=== PATIENT | female | born 1940 | race Caucasian/White ===

== ENCOUNTER → 2016-04-15 | Outpatient (CLI) | payer MEDICARE ==
--- NOTE | 2016-04-15 12:27 | REP ---
Clinical: Cervicalgia. Technique: AP, lateral, flexion/extension, open-mouth, and bilateral oblique views. Comparison: None. Findings: Advanced chronic changes include prior anterior fusion at the C3-4 level along with diffuse partial fusion throughout the remainder of the cervical spine. Alignment is maintained. No acute fracture / compression injury or subluxation identified. 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
== END | disposition home or self-care (01) ==
LOC: M CLY 11:34
PROVIDERS: ATTEND Family Medicine
DX: M50.320 Other cervical disc degeneration, mid-cervical region, unspecified level (principal); E03.9 Hypothyroidism, unspecified; Z98.890 Other specified postprocedural states
CPT/HCPCS: 72050; 80053; 80061; 82652; 84436; 84443; 84480; 85025; G0463

== ENCOUNTER → 2016-04-15 | Outpatient (REF) | payer MEDICARE ==
[2016-04-15 17:30] LABS: BASO # 0.1 K/mm3 (0.0-0.2); BASO % 0.9 % (0.0-1.0); EOS # 0.3 K/mm3 (0.0-0.50); EOS % 5.1 % (0.0-3.0); LARGE UNSTAINED CELL # 0.1 K/mm3 (0.0-0.4); LARGE UNSTAINED CELL % 2.2 % (0.0-4.0); LYMPH # 2.3 K/mm3 (1.5-4.5); LYMPH % 36.6 % (24.0-44.0); MEAN CORPUSCULAR HEMOGLOBIN 29.2 pg (27.0-33.0); MEAN CORPUSCULAR HGB CONC 33.8 g/dl (32.0-36.5); MEAN CORPUSCULAR VOLUME 86.5 fl (80.0-96.0); MONO # 0.3 K/mm3 (0.0-0.8); MONO % 4.4 % (0.0-5.0); NEUTROPHILS # 3.2 K/mm3 (1.8-7.7); NEUTROPHILS % 50.8 % (36.0-66.0); PLATELET COUNT, AUTOMATED 307 k/mm3 (150-450); WHITE BLOOD COUNT 6.3 K/mm3 (4.0-10.0)
[2016-04-15 17:43] LABS: ALBUMIN/GLOBULIN RATIO 1.14 (1.00-1.93); ALKALINE PHOSPHATASE 157 U/L (45-117); ALT/SGPT 61 U/L (12-78); ANION GAP 12 MEQ/L (8-16); AST/SGOT 29 U/L (15-37); BILIRUBIN,TOTAL 0.4 MG/DL (0.2-1.0); BLOOD UREA NITROGEN 14 MG/DL (7-18); CALCIUM LEVEL 9.1 MG/DL (8.8-10.2); CARBON DIOXIDE LEVEL 26 MEQ/L (21-32); CHLORIDE LEVEL 99 MEQ/L (98-107); CHOLESTEROL LEVEL 324 MG/DL (<200); CREATININE FOR GFR 0.62 MG/DL (0.55-1.02); GLOMERULAR FILTRATION RATE > 60.0 (>39); GLUCOSE, FASTING 90 MG/DL (83-110); POTASSIUM SERUM 4.5 MEQ/L (3.5-5.1); SODIUM LEVEL 137 MEQ/L (136-145); THYROXINE (T4) 6.4 UG/DL (4.5-12.0); TOTAL PROTEIN 7.5 GM/DL (6.4-8.2); TRIGLYCERIDES LEVEL 472 MG/DL (<150)
== END ==
LOC: M SFHCCLAY 11:19
PROVIDERS: ATTEND Family Medicine
DX: I10 Essential (primary) hypertension (principal); E78.2 Mixed hyperlipidemia; E03.9 Hypothyroidism, unspecified; E55.9 Vitamin D deficiency, unspecified

== ENCOUNTER → 2016-07-12 | Outpatient (REF) | payer MEDICARE ==
[2016-07-12 18:04] LABS: THYROXINE (T4) 8.8 UG/DL (4.5-12.0)
== END ==
LOC: M SFHCCLAY 09:47
PROVIDERS: ATTEND Family Medicine
DX: E03.9 Hypothyroidism, unspecified (principal)
CPT/HCPCS: 84436; 84443; 84480; G0463

== ENCOUNTER → 2016-07-19 | Outpatient (REF) | payer MEDICARE ==
[2016-07-19 17:55] LABS: ANION GAP 7 MEQ/L (8-16); BLOOD UREA NITROGEN 19 MG/DL (7-18); CALCIUM LEVEL 9.3 MG/DL (8.8-10.2); CARBON DIOXIDE LEVEL 28 MEQ/L (21-32); CHLORIDE LEVEL 102 MEQ/L (98-107); CREATININE FOR GFR 0.69 MG/DL (0.55-1.02); GLOMERULAR FILTRATION RATE > 60.0 (>39); GLUCOSE, FASTING 102 MG/DL (83-110); POTASSIUM SERUM 4.4 MEQ/L (3.5-5.1); SODIUM LEVEL 137 MEQ/L (136-145)
== END ==
LOC: M SFHCCLAY 12:56
PROVIDERS: ATTEND Family Medicine
DX: I10 Essential (primary) hypertension (principal)

== ENCOUNTER → 2016-07-19 | Outpatient (CLI) | payer MEDICARE ==
--- NOTE | 2016-07-19 16:15 | REP ---
Chest x-ray: Two views: History: Shortness of breath. No comparison chest x-ray. Findings: The patient is status post cervical discectomy and fusion. There is linear fibrosis in the lingular segment of the left upper lobe. Lung mendez are otherwise clear and well inflated. Pleural angles are sharp. Heart size is normal. The aorta is somewhat tortuous. There are degenerative changes in the thoracic spine. 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 Otherwise no acute disease.
== END ==
LOC: M CLY 13:01
PROVIDERS: ATTEND Family Medicine
DX: R06.02 Shortness of breath (principal); Z98.1 Arthrodesis status; I10 Essential (primary) hypertension
CPT/HCPCS: 71020; 80048; G0463

== ENCOUNTER → 2017-02-18 | Outpatient (REF) | payer MEDICARE ==
[2017-02-18 19:44] LABS: THYROXINE (T4) 10.6 UG/DL (4.5-12.0)
== END ==
LOC: M SFHCCLAY 10:24
PROVIDERS: ATTEND Family Medicine
DX: E03.9 Hypothyroidism, unspecified (principal); E55.9 Vitamin D deficiency, unspecified; Z23 Encounter for immunization
CPT/HCPCS: 82652; 84436; 84443; 90662; G0008; G0463

== ENCOUNTER → 2017-06-17 | Outpatient (REF) | payer MEDICARE ==
[2017-06-17 17:21] LABS: TOTAL T3 93.5 NG/DL (60.0-181.0)
[2017-06-17 18:00] LABS: BASO # 0.1 10^3/uL (0.0-0.2); BASO % 1.5 % (0.0-1.0); EOS # 0.6 10^3/uL (0.0-0.50); EOS % 9.8 % (0.0-3.0); HEMATOCRIT 39.5 % (36.0-47.0); HEMOGLOBIN 13.3 g/dl (12.0-16.0); IMMATURE GRANULOCYTE % 0.2 % (0-3.0); LYMPH # 2.4 10^3/uL (1.5-4.5); LYMPH % 39.5 % (24.0-44.0); MEAN CORPUSCULAR HEMOGLOBIN 29.4 pg (27.0-33.0); MEAN CORPUSCULAR HGB CONC 33.7 g/dl (32.0-36.5); MEAN CORPUSCULAR VOLUME 87.4 fl (80.0-96.0); MONO # 0.5 10^3/uL (0.0-0.8); MONO % 7.3 % (0.0-5.0); NEUTROPHILS # 2.6 10^3/uL (1.8-7.7); NEUTROPHILS % 41.7 % (36.0-66.0); PLATELET COUNT, AUTOMATED 276 10^3/uL (150-450); RED BLOOD COUNT 4.52 10^6/uL (4.00-5.40); RED CELL DISTRIBUTION WIDTH 12.6 % (11.5-14.5); WHITE BLOOD COUNT 6.1 10^3/uL (4.0-10.0)
[2017-06-17 18:20] LABS: ALBUMIN 3.7 GM/DL (3.2-5.2); ALBUMIN/GLOBULIN RATIO 1.06 (1.00-1.93); ALKALINE PHOSPHATASE 122 U/L (45-117); ALT/SGPT 24 U/L (12-78); ANION GAP 9 MEQ/L (8-16); AST/SGOT 20 U/L (7-37); BILIRUBIN,TOTAL 0.4 MG/DL (0.2-1.0); BLOOD UREA NITROGEN 13 MG/DL (7-18); CARBON DIOXIDE LEVEL 26 MEQ/L (21-32); CHLORIDE LEVEL 100 MEQ/L (98-107); CREATININE FOR GFR 0.63 MG/DL (0.55-1.30); GLOMERULAR FILTRATION RATE > 60.0 (>39); GLUCOSE, FASTING 95 MG/DL (70-100); POTASSIUM SERUM 4.5 MEQ/L (3.5-5.1); SODIUM LEVEL 135 MEQ/L (136-145); THYROXINE (T4) 8.6 UG/DL (4.5-12.0); TOTAL PROTEIN 7.2 GM/DL (6.4-8.2)
[2017-06-20 15:19] LABS: VITAMIN D 1,25 DIHYDROXY 54.7 pg/mL (19.9-79.3)
== END ==
LOC: M SFHCCLAY 10:41
DX: E55.9 Vitamin D deficiency, unspecified (principal); I10 Essential (primary) hypertension; E03.9 Hypothyroidism, unspecified
CPT/HCPCS: 84443

== ENCOUNTER → 2018-02-16 | Outpatient (REF) | payer MEDICARE ==
[2018-02-16 18:10] LABS: ANION GAP 8 MEQ/L (8-16); BLOOD UREA NITROGEN 13 MG/DL (7-18); CALCIUM LEVEL 9.7 MG/DL (8.8-10.2); CARBON DIOXIDE LEVEL 29 MEQ/L (21-32); CHLORIDE LEVEL 98 MEQ/L (98-107); CREATININE FOR GFR 0.76 MG/DL (0.55-1.30); GLOMERULAR FILTRATION RATE > 60.0 (>39); GLUCOSE, FASTING 95 MG/DL (70-100); POTASSIUM SERUM 4.7 MEQ/L (3.5-5.1); SODIUM LEVEL 135 MEQ/L (136-145)
== END ==
LOC: M SFHCCLAY 09:54
DX: E03.9 Hypothyroidism, unspecified (principal); I10 Essential (primary) hypertension; Z23 Encounter for immunization
CPT/HCPCS: 84443

== ENCOUNTER → 2018-09-25 | Outpatient (REF) | payer OTHER ==
[2018-09-25 16:32] LABS: BASO # 0.1 10^3/uL (0.0-0.2); BASO % 1.7 % (0.0-1.0); EOS # 0.6 10^3/uL (0.0-0.50); EOS % 8.2 % (0.0-3.0); HEMATOCRIT 38.4 % (36.0-47.0); HEMOGLOBIN 12.6 g/dl (12.0-15.5); LYMPH # 2.3 10^3/uL (1.5-4.5); LYMPH % 32.2 % (24.0-44.0); MEAN CORPUSCULAR HEMOGLOBIN 28.6 pg (27.0-33.0); MEAN CORPUSCULAR HGB CONC 32.8 g/dl (32.0-36.5); MEAN CORPUSCULAR VOLUME 87.1 fl (80.0-96.0); MONO # 0.5 10^3/uL (0.0-0.8); MONO % 7.1 % (0.0-5.0); NEUTROPHILS # 3.6 10^3/uL (1.8-7.7); NEUTROPHILS % 50.7 % (36.0-66.0); PLATELET COUNT, AUTOMATED 312 10^3/uL (150-450); RED BLOOD COUNT 4.41 10^6/uL (4.00-5.40); WHITE BLOOD COUNT 7.1 10^3/uL (4.0-10.0)
[2018-09-25 16:46] LABS: ALBUMIN 3.7 GM/DL (3.2-5.2); ALT/SGPT 31 U/L (12-78); BILIRUBIN,TOTAL 0.3 MG/DL (0.2-1.0); BLOOD UREA NITROGEN 21 MG/DL (7-18); CALCIUM LEVEL 9.3 MG/DL (8.8-10.2); CARBON DIOXIDE LEVEL 28 MEQ/L (21-32); CHLORIDE LEVEL 99 MEQ/L (98-107); CREATININE FOR GFR 0.83 MG/DL (0.55-1.30); GLOMERULAR FILTRATION RATE > 60.0 (>39); GLUCOSE, FASTING 120 MG/DL (70-100); POTASSIUM SERUM 4.5 MEQ/L (3.5-5.1); SODIUM LEVEL 134 MEQ/L (136-145); THYROXINE (T4) 9.2 UG/DL (4.5-12.0)
[2018-09-25 16:47] LABS: TOTAL T3 84.4 NG/DL (60.0-181.0)
== END ==
LOC: M SFHCCLAY 11:11
PROVIDERS: ATTEND Family Medicine
DX: R06.02 Shortness of breath (principal); I10 Essential (primary) hypertension; E03.9 Hypothyroidism, unspecified

== ENCOUNTER → 2018-09-25 | Outpatient (CLI) | payer OTHER ==
--- NOTE | 2018-09-25 14:10 | REP ---
PA and lateral chest: Comparison is 07/19/2016. This horizontal linear scar in the left mid lung. This is unchanged. Lung mendez otherwise clear. Cardiac size is normal. The judy and mediastinum are unremarkable. Mild scoliosis and kyphosis are again identified, unchanged. Impression: There are no acute cardiopulmonary findings.
== END ==
LOC: M CLY 11:28
PROVIDERS: ATTEND Family Medicine
DX: R06.02 Shortness of breath (principal); E03.9 Hypothyroidism, unspecified
CPT/HCPCS: 71046; 80053; 84436; 84443; 84480; 85025; G0463

== ENCOUNTER → 2019-04-30 | Outpatient (REF) | payer MEDICARE ==
[2019-04-30 17:04] LABS: BASO # 0.1 10^3/uL (0.0-0.2); BASO % 1.6 % (0.0-1.0); EOS # 0.4 10^3/uL (0.0-0.5); EOS % 6.7 % (0.0-3.0); HEMATOCRIT 42.4 % (36.0-47.0); HEMOGLOBIN 13.4 g/dl (12.0-15.5); LYMPH # 2.7 10^3/uL (1.5-5.0); LYMPH % 42.7 % (24.0-44.0); MEAN CORPUSCULAR HEMOGLOBIN 28.1 pg (27.0-33.0); MEAN CORPUSCULAR HGB CONC 31.6 g/dl (32.0-36.5); MEAN CORPUSCULAR VOLUME 88.9 fl (80.0-96.0); MONO # 0.5 10^3/uL (0.0-0.8); MONO % 7.3 % (0.0-5.0); NEUTROPHILS # 2.7 10^3/uL (1.5-8.5); NEUTROPHILS % 41.5 % (36.0-66.0); PLATELET COUNT, AUTOMATED 285 10^3/uL (150-450); RED BLOOD COUNT 4.77 10^6/uL (4.00-5.40); WHITE BLOOD COUNT 6.4 10^3/uL (4.0-10.0)
[2019-04-30 17:35] LABS: ALBUMIN 3.9 GM/DL (3.2-5.2); ALT/SGPT 26 U/L (12-78); BILIRUBIN,TOTAL 0.5 MG/DL (0.2-1.0); BLOOD UREA NITROGEN 15 MG/DL (7-18); CALCIUM LEVEL 8.8 MG/DL (8.8-10.2); CARBON DIOXIDE LEVEL 30 MEQ/L (21-32); CHLORIDE LEVEL 103 MEQ/L (98-107); CREATININE FOR GFR 0.83 MG/DL (0.55-1.30); GLOMERULAR FILTRATION RATE > 60.0 (>39); GLUCOSE, FASTING 122 MG/DL (70-100); POTASSIUM SERUM 4.3 MEQ/L (3.5-5.1); SODIUM LEVEL 140 MEQ/L (136-145); TOTAL PROTEIN 7.2 GM/DL (6.4-8.2)
== END ==
LOC: M SFHCCLAY 11:35
PROVIDERS: ATTEND Family Medicine
DX: I10 Essential (primary) hypertension (principal); E03.9 Hypothyroidism, unspecified; Z23 Encounter for immunization
CPT/HCPCS: 80053; 84443; 85025; 90682; G0008; G0463

== ENCOUNTER → 2020-05-04 | Outpatient (REF) | payer MEDICARE ==
[2020-05-04 16:18] LABS: BASO # 0.1 10^3/uL (0.0-0.2); BASO % 1.1 % (0.0-1.0); EOS # 0.5 10^3/uL (0.0-0.5); EOS % 5.8 % (0.0-3.0); HEMATOCRIT 42.3 % (36.0-47.0); HEMOGLOBIN 13.7 g/dl (12.0-15.5); LYMPH % 34.2 % (24.0-44.0); MEAN CORPUSCULAR HEMOGLOBIN 28.5 pg (27.0-33.0); MEAN CORPUSCULAR HGB CONC 32.4 g/dl (32.0-36.5); MEAN CORPUSCULAR VOLUME 87.9 fl (80.0-96.0); MONO # 0.7 10^3/uL (0.0-0.8); MONO % 7.4 % (0.0-5.0); NEUTROPHILS # 4.5 10^3/uL (1.5-8.5); NEUTROPHILS % 51.2 % (36.0-66.0); PLATELET COUNT, AUTOMATED 317 10^3/uL (150-450); RED BLOOD COUNT 4.81 10^6/uL (4.00-5.40); WHITE BLOOD COUNT 8.8 10^3/uL (4.0-10.0)
[2020-05-04 16:48] LABS: ALBUMIN 4.4 GM/DL (3.2-5.2); BILIRUBIN,TOTAL 0.4 MG/DL (0.2-1.0); CALCIUM LEVEL 9.8 MG/DL (8.8-10.2); CHOLESTEROL RISK RATIO 7.795 (<5); CREATININE FOR GFR 1.04 MG/DL (0.55-1.30); GLOMERULAR FILTRATION RATE 54.7 (>39); POTASSIUM SERUM 4.6 MEQ/L (3.5-5.1); THYROID STIMULATING HORMONE 3.67 uIU/ML (0.358-3.740); TOTAL PROTEIN 7.5 GM/DL (6.4-8.2)
== END ==
LOC: M SFHCCLAY 12:05
PROVIDERS: ATTEND Family Medicine
DX: E78.2 Mixed hyperlipidemia (principal); I10 Essential (primary) hypertension; E03.9 Hypothyroidism, unspecified

== ENCOUNTER → 2020-09-17 | Outpatient (REF) | payer MEDICARE | LOC: M WUC 19:38 | PROVIDERS: ATTEND Nurse Practitioner Family | DX: R19.7 Diarrhea, unspecified (principal); R50.9 Fever, unspecified ==

== ENCOUNTER → 2020-09-19 | Outpatient (CLI) | payer MEDICARE ==
--- NOTE | 2020-09-19 13:41 | REP ---
INDICATION: R10.13, EPIGASTRIC PAIN. COMPARISON: None. FINDINGS: KUB shows the intestinal gas pattern to be nonspecific. The organ silhouettes insofar as delineated are unremarkable. There is no evidence of free intraperitoneal air. Spinal fixation is seen at L4-S1. There are multiple bilateral pelvic phleboliths. IMPRESSION: Nonspecific. <Electronically signed by Dany Echevarria > 09/19/20 [id number]
== END ==
LOC: M CLY 09:40
PROVIDERS: ATTEND Family Medicine
DX: I87.8 Other specified disorders of veins (principal); R10.13 Epigastric pain

== ENCOUNTER → 2020-09-19 | Outpatient (REF) | payer MEDICARE ==
[2020-09-19 15:57] LABS: BASO # 0.1 10^3/uL (0.0-0.2); BASO % 0.9 % (0.0-1.0); EOS # 0.5 10^3/uL (0.0-0.5); EOS % 5.1 % (0.0-3.0); HEMATOCRIT 45.8 % (36.0-47.0); HEMOGLOBIN 15.1 g/dl (12.0-15.5); LYMPH # 3.2 10^3/uL (1.5-5.0); LYMPH % 33.4 % (24.0-44.0); MEAN CORPUSCULAR HEMOGLOBIN 28.5 pg (27.0-33.0); MEAN CORPUSCULAR VOLUME 86.6 fl (80.0-96.0); MONO # 0.9 10^3/uL (0.0-0.8); MONO % 8.9 % (2.0-8.0); NEUTROPHILS % 51.5 % (36.0-66.0); PLATELET COUNT, AUTOMATED 352 10^3/uL (150-450); RED BLOOD COUNT 5.29 10^6/uL (4.00-5.40); WHITE BLOOD COUNT 9.7 10^3/uL (4.0-10.0)
[2020-09-19 16:23] LABS: ALBUMIN 4.2 GM/DL (3.2-5.2); BILIRUBIN,TOTAL 0.5 MG/DL (0.2-1.0); CALCIUM LEVEL 10.8 MG/DL (8.8-10.2); CREATININE FOR GFR 1.32 MG/DL (0.55-1.30); GLOMERULAR FILTRATION RATE 41.4 (>39); POTASSIUM SERUM 4.8 MEQ/L (3.5-5.1)
== END ==
LOC: M SFHCCLAY 09:19
PROVIDERS: ATTEND Family Medicine
DX: R10.13 Epigastric pain (principal)

== ENCOUNTER → 2020-09-22 | Outpatient (CLI) | payer MEDICARE ==
--- NOTE | 2020-09-22 10:17 | REP ---
INDICATION: EPIGASTRIC PAIN. COMPARISON: None. TECHNIQUE: Real-time sonographic evaluation of ABDOMEN performed. FINDINGS: The gallbladder demonstrates no evidence of intraluminal sludge or calculi, wall thickening or pericholecystic fluid. There is no intrahepatic or extrahepatic biliary dilatation, common bile duct measures 7 mm in maximum diameter. Liver demonstrates diffuse increased echotexture compatible with diffuse fibrofatty infiltration, with no gross mass. The visualized pancreas is grossly unremarkable, the tail is not well seen due to overlying bowel gas. Spleen is normal in length at 12.2 cm. However the splenic index is mildly elevated at 772. There is no evidence of hydronephrosis, cyst, mass, or calculus in either kidney. The right kidney measures 10.2 x 7.2 x 5.7 cm. Left renal dimensions are 10.5 x 5.0 x 5.1 cm. The abdominal aorta is normal in caliber with no aneurysm. [id number] plaquing is noted of the abdominal aorta. No free fluid is seen. IMPRESSION: Diffuse fibrofatty infiltration of the liver. No gallstones or biliary dilatation. Spleen is normal in length, but the splenic index is mildly elevated suggesting mild splenomegaly. <Electronically signed by Adolfo Timmons > 09/22/20 [id number]
== END ==
LOC: M RAD 08:09
PROVIDERS: ATTEND Family Medicine
DX: R10.816 Epigastric abdominal tenderness (principal); K76.0 Fatty (change of) liver, not elsewhere classified

== ENCOUNTER → 2021-03-06 | Outpatient (REF) | payer MEDICARE ==
[2021-03-06 16:20] LABS: BASO # 0.1 10^3/uL (0.0-0.2); BASO % 1.3 % (0.0-1.0); EOS # 0.3 10^3/uL (0.0-0.5); EOS % 4.3 % (0.0-3.0); HEMATOCRIT 40.7 % (36.0-47.0); HEMOGLOBIN 13.3 g/dl (12.0-15.5); LYMPH # 2.6 10^3/uL (1.5-5.0); LYMPH % 38.1 % (24.0-44.0); MEAN CORPUSCULAR HEMOGLOBIN 29.2 pg (27.0-33.0); MEAN CORPUSCULAR HGB CONC 32.7 g/dl (32.0-36.5); MEAN CORPUSCULAR VOLUME 89.5 fl (80.0-96.0); MONO # 0.6 10^3/uL (0.0-0.8); MONO % 8.2 % (2.0-8.0); NEUTROPHILS # 3.2 10^3/uL (1.5-8.5); PLATELET COUNT, AUTOMATED 318 10^3/uL (150-450); RED BLOOD COUNT 4.55 10^6/uL (4.00-5.40); WHITE BLOOD COUNT 6.7 10^3/uL (4.0-10.0)
[2021-03-06 17:04] LABS: ALBUMIN 3.7 GM/DL (3.2-5.2); ALT/SGPT 32 U/L (12-78); BILIRUBIN,TOTAL 0.4 MG/DL (0.2-1.0); BLOOD UREA NITROGEN 20 MG/DL (7-18); CALCIUM LEVEL 9.4 MG/DL (8.8-10.2); CARBON DIOXIDE LEVEL 28 MEQ/L (21-32); CHLORIDE LEVEL 102 MEQ/L (98-107); CHOLESTEROL LEVEL 294 MG/DL (<200); CHOLESTEROL RISK RATIO 6.533 (<5); CREATININE FOR GFR 0.91 MG/DL (0.55-1.30); GLOMERULAR FILTRATION RATE > 60.0 (>39); GLUCOSE, FASTING 161 MG/DL (70-100); HDL CHOLESTEROL 45 MG/DL (>40); LDL CHOLESTEROL 191 MG/DL (<100); NON-HDL-C 249 MG/DL; POTASSIUM SERUM 4.5 MEQ/L (3.5-5.1); SODIUM LEVEL 136 MEQ/L (136-145); TOTAL PROTEIN 7.5 GM/DL (6.4-8.2); TRIGLYCERIDES LEVEL 288 MG/DL (<150)
== END ==
LOC: M SFHCCLAY 11:05
PROVIDERS: ATTEND Family Medicine
DX: E78.2 Mixed hyperlipidemia (principal); E03.9 Hypothyroidism, unspecified; I10 Essential (primary) hypertension

== ENCOUNTER → 2022-01-11 | Outpatient (REF) | payer MEDICARE ==
[2022-01-11 18:25] LABS: BASO # 0.1 10^3/uL (0.0-0.2); BASO % 1.4 % (0.0-1.0); EOS # 0.6 10^3/uL (0.0-0.5); EOS % 11.2 % (0.0-3.0); HEMATOCRIT 31.5 % (36.0-47.0); HEMOGLOBIN 10.4 g/dl (12.0-15.5); LYMPH # 1.3 10^3/uL (1.5-5.0); LYMPH % 25.5 % (24.0-44.0); MEAN CORPUSCULAR HEMOGLOBIN 29.8 pg (27.0-33.0); MEAN CORPUSCULAR VOLUME 90.3 fl (80.0-96.0); MONO # 0.5 10^3/uL (0.0-0.8); MONO % 10.2 % (2.0-8.0); NEUTROPHILS # 2.7 10^3/uL (1.5-8.5); NEUTROPHILS % 51.5 % (36.0-66.0); PLATELET COUNT, AUTOMATED 329 10^3/uL (150-450); RED BLOOD COUNT 3.49 10^6/uL (4.00-5.40); WHITE BLOOD COUNT 5.2 10^3/uL (4.0-10.0)
[2022-01-11 19:09] LABS: ALBUMIN 3.1 GM/DL (3.2-5.2); ALT/SGPT 97 U/L (12-78); BILIRUBIN,TOTAL 0.5 MG/DL (0.2-1.0); BLOOD UREA NITROGEN 13 MG/DL (7-18); CALCIUM LEVEL 8.9 MG/DL (8.8-10.2); CARBON DIOXIDE LEVEL 26 MEQ/L (21-32); CHLORIDE LEVEL 98 MEQ/L (98-107); CHOLESTEROL LEVEL 150 MG/DL (<200); CHOLESTEROL RISK RATIO 3.947 (<5); CREATININE FOR GFR 0.91 MG/DL (0.55-1.30); GLOMERULAR FILTRATION RATE > 60.0 (>39); GLUCOSE, FASTING 188 MG/DL (70-100); HDL CHOLESTEROL 38 MG/DL (>40); LDL CHOLESTEROL 90 MG/DL (<100); NON-HDL-C 112 MG/DL; SODIUM LEVEL 132 MEQ/L (136-145); TOTAL PROTEIN 6.6 GM/DL (6.4-8.2); TRIGLYCERIDES LEVEL 112 MG/DL (<150)
[2022-01-14 07:47] LABS: IRON (FE) 41 UG/DL (50-170)
[2022-01-14 10:00] LABS: VITAMIN B12 LEVEL 436 PG/ML (247-911)
[2022-01-14 14:33] LABS: HEMOGLOBIN A1c 5.8 %
[2022-01-15 08:09] LABS: FOLATE 13.3 ng/mL (>3.0)
== END ==
LOC: M SFHCCLAY 12:28
PROVIDERS: ATTEND Family Medicine
DX: E87.1 Hypo-osmolality and hyponatremia (principal); E78.2 Mixed hyperlipidemia; E03.9 Hypothyroidism, unspecified; I10 Essential (primary) hypertension; D50.9 Iron deficiency anemia, unspecified

== ENCOUNTER 2022-02-01 15:12 | Emergency (ER) | payer MEDICARE, SELFPAY ==
[~2022-02-01] VITALS: Ht 175.3 cm; Wt 109.1 kg
[2022-02-01] MEDS ORDERED: CLOP75TA99 PO (15:23)
[2022-02-01 16:24] LABS: ABG BASE EXCESS -0.4 (-2.0-2.0); ABG HCO3 21.4 MEQ/L (22.0-26.0); ABG O2 SATURATION 99.5 % (95.0-99.0); ABG PARTIAL PRESSURE O2 193.6 mmHg (75.0-100.0); ABG STANDARD HCO3 24.2 MEQ/L (22.0-26.0); ABG TOTAL CO2 22.2 MEQ/L (23.0-31.0); ABG pH (ARTERIAL) 7.517 UNITS (7.350-7.450)
[2022-02-01 16:31] LABS: BASO # 0.1 10^3/uL (0.0-0.2); EOS # 0.4 10^3/uL (0.0-0.5); EOS % 5.7 % (0.0-3.0); HEMATOCRIT 33.8 % (36.0-47.0); LYMPH % 30.2 % (24.0-44.0); MEAN CORPUSCULAR HEMOGLOBIN 29.6 pg (27.0-33.0); MEAN CORPUSCULAR HGB CONC 32.5 g/dl (32.0-36.5); MEAN CORPUSCULAR VOLUME 91.1 fl (80.0-96.0); MONO # 0.6 10^3/uL (0.0-0.8); MONO % 9.6 % (2.0-8.0); NEUTROPHILS # 3.6 10^3/uL (1.5-8.5); NEUTROPHILS % 53.2 % (36.0-66.0); PLATELET COUNT, AUTOMATED 298 10^3/uL (150-450); RED BLOOD COUNT 3.71 10^6/uL (4.00-5.40); WHITE BLOOD COUNT 6.7 10^3/uL (4.0-10.0)
[2022-02-01 16:37] LABS: RSV AMPLIFICATION NEGATIVE (NEGATIVE)
[2022-02-01 16:58] LABS: MB/CK RELATIVE INDEX 2.04 (< OR =4)
[2022-02-01 17:04] LABS: ACETAMINOPHEN LEVEL < 2.0 UG/ML (10.0-30.0); ALBUMIN 3.2 GM/DL (3.2-5.2); ALT/SGPT 23 U/L (12-78); BILIRUBIN,DIRECT 0.2 MG/DL (0.0-0.2); BILIRUBIN,TOTAL 0.6 MG/DL (0.2-1.0); BLOOD UREA NITROGEN 21 MG/DL (7-18); CARBON DIOXIDE LEVEL 24 MEQ/L (21-32); CHLORIDE LEVEL 102 MEQ/L (98-107); CREATININE FOR GFR 1.02 MG/DL (0.55-1.30); ETHYL ALCOHOL (ETHANOL) < 0.003 % (0.000-0.010); GLOMERULAR FILTRATION RATE 55.7 (>39); GLUCOSE, FASTING 103 MG/DL (70-100); SALICYLATE LEVEL < 1.7 MG/DL (5.0-30.0); SODIUM LEVEL 133 MEQ/L (136-145); TOTAL PROTEIN 6.8 GM/DL (6.4-8.2)
[2022-02-01 18:50] VITALS: BP 162/68
== END 2022-02-01 18:53 | disposition home or self-care (01) ==
LOC: M ED 15:12
DX: R29.6 Repeated falls (principal); R41.0 Disorientation, unspecified; Z79.02 Long term (current) use of antithrombotics/antiplatelets; B96.20 Unspecified Escherichia coli [E. coli] as the cause of diseases classified elsewhere; I69.334 Monoplegia of upper limb following cerebral infarction affecting left non-dominant side; Z85.42 Personal history of malignant neoplasm of other parts of uterus; Z92.21 Personal history of antineoplastic chemotherapy; F32.A Depression, unspecified; Z87.81 Personal history of (healed) traumatic fracture; E03.9 Hypothyroidism, unspecified; Z88.2 Allergy status to sulfonamides

== ENCOUNTER → 2022-03-07 | Outpatient (REF) | payer MEDICARE ==
[~2022-03-07] MED LIST: CLOP75TA99 PO
[2022-03-07 20:56] LABS: ALKALINE PHOSPHATASE 155 U/L (46-116); ALT/SGPT 20 U/L (7.0-40); AST/SGOT 15 U/L (<34); BILIRUBIN,TOTAL 0.4 MG/DL (0.3-1.2); BLOOD UREA NITROGEN 17 MG/DL (9-23); CALCIUM LEVEL 9.7 MG/DL (8.3-10.6); CARBON DIOXIDE LEVEL 24 MMOL/L (20-31); CHLORIDE LEVEL 98 MMOL/L (98-107); GLUCOSE, FASTING 99 MG/DL (74-106); POTASSIUM SERUM 4.5 MMOL/L (3.5-5.1); SODIUM LEVEL 133 MMOL/L (136-145)
[2022-03-07 20:57] LABS: ALBUMIN 3.8 G/DL (3.2-5.2); TOTAL PROTEIN 6.7 G/DL (5.7-8.2)
[2022-03-07 21:13] LABS: CREATININE FOR GFR 0.66 MG/DL (0.55-1.30); GLOMERULAR FILTRATION RATE > 60.0 (>39)
== END ==
LOC: M SFHCCLAY 11:37
PROVIDERS: ATTEND Family Medicine
DX: E87.1 Hypo-osmolality and hyponatremia (principal)

== ENCOUNTER → 2022-06-18 | Outpatient (REF) | payer MEDICARE ==
[2022-06-18 18:12] LABS: BASO # 0.1 10^3/uL (0.0-0.2); BASO % 1.3 % (0.0-1.0); EOS # 0.6 10^3/uL (0.0-0.5); EOS % 7.3 % (0.0-3.0); HEMATOCRIT 36.1 % (36.0-47.0); HEMOGLOBIN 11.6 g/dl (12.0-15.5); LYMPH # 2.3 10^3/uL (1.5-5.0); LYMPH % 30.4 % (24.0-44.0); MEAN CORPUSCULAR HEMOGLOBIN 28.9 pg (27.0-33.0); MEAN CORPUSCULAR HGB CONC 32.1 g/dl (32.0-36.5); MEAN CORPUSCULAR VOLUME 89.8 fl (80.0-96.0); MONO # 0.6 10^3/uL (0.0-0.8); MONO % 8.2 % (2.0-8.0); NEUTROPHILS % 52.7 % (36.0-66.0); PLATELET COUNT, AUTOMATED 349 10^3/uL (150-450); RED BLOOD COUNT 4.02 10^6/uL (4.00-5.40); WHITE BLOOD COUNT 7.6 10^3/uL (4.0-10.0)
[2022-06-18 18:31] LABS: ALBUMIN 3.4 G/DL (3.2-5.2); ALKALINE PHOSPHATASE 223 U/L (46-116); ALT/SGPT 24 U/L (7.0-40); AST/SGOT 20 U/L (<34); BILIRUBIN,TOTAL 0.3 MG/DL (0.3-1.2); BLOOD UREA NITROGEN 27 MG/DL (9-23); CALCIUM LEVEL 9.2 MG/DL (8.3-10.6); CARBON DIOXIDE LEVEL 23 MMOL/L (20-31); CHLORIDE LEVEL 101 MMOL/L (98-107); CREATININE FOR GFR 0.78 MG/DL (0.55-1.30); GLOMERULAR FILTRATION RATE > 60.0 (>32); GLUCOSE, FASTING 105 MG/DL (74-106); IRON (FE) 49 UG/DL (50-170); POTASSIUM SERUM 4.7 MMOL/L (3.5-5.1); SODIUM LEVEL 133 MMOL/L (136-145); THYROID STIMULATING HORMONE 2.623 uIU/ML (0.55-4.78); TOTAL PROTEIN 6.1 G/DL (5.7-8.2)
== END ==
LOC: M SFHCCLAY 14:04
PROVIDERS: ATTEND Family Medicine
DX: E87.1 Hypo-osmolality and hyponatremia (principal); I10 Essential (primary) hypertension; E03.9 Hypothyroidism, unspecified

== ENCOUNTER 2022-07-09 06:47 | Day surgery (SDC) | payer MEDICARE ==
[~2022-07-09] VITALS: Ht 175.3 cm; Wt 79.4 kg
[~2022-07-09 06:47] MED LIST changes: +ATOR40TA75 PO; +BENA-8 PO; +BSS IRR 500ML/OMIDRIA 4ML IRR BAG (OR ONLY) As Ordered ONE; +CEFUROXIME 1MG/0.1ML INTRACAMERAL INJ As Ordered ONE; +COEN100T PO; +CYCLOPENTOLATE 1% OPHTH SOLN 2ML BTL OD SCH; +ECOT81TA5 PO; +FURO20TA2 PO; +GLUC1TAB58 PO; +LEVO50TA5 PO; +LIDO5DIS41 TD; +LIDOCAINE 1% SDV 5ML VIAL As Ordered ONE; +MELA5TAB21 PO; +MELO15TA28 PO; +METO1TAB7 PO; +MONT10TA97 PO; +NORT10CA2 PO; +OFLOXACIN 0.3 % (OCUFLOX) OPTH SOL 5ML OD SCH; +PHENYLEPHRINE 2.5% OPHTH SOL 2ML OD SCH; +POLY510P14 PO; +PROPARACAINE 0.5% OPHTH SOL 15ML OD ONE; +SENN8.6T58 PO; +SODI1TAB6 PO; +TRAM50TA2 PO; +TROPICAMIDE 1% OPHTH SOLN 15ML OD SCH; +TYLE650T38 PO; +VENL150C43 PO; +VENL75CA47 PO
[2022-07-09] MEDS ORDERED: fentaNYL 100 MCG/2 ML INJECTION As Ordered ONE (08:38)
[2022-07-09] MEDS ORDERED: MIDAZOLAM INJ 2MG/2ML VIAL As Ordered ONE (09:02)
[2022-07-09 09:25] VITALS: BP 139/84
== END 2022-07-09 09:40 | disposition home or self-care (01) ==
LOC: M SDC 06:47
PROVIDERS: ATTEND Ophthalmology
DX: H25.11 Age-related nuclear cataract, right eye (principal); I10 Essential (primary) hypertension; E78.5 Hyperlipidemia, unspecified; E03.9 Hypothyroidism, unspecified; Z86.73 Personal history of transient ischemic attack (TIA), and cerebral infarction without residual deficits; F32.A Depression, unspecified; F41.9 Anxiety disorder, unspecified; R32 Unspecified urinary incontinence; Z88.2 Allergy status to sulfonamides; Z91.010 Allergy to peanuts; Z79.899 Other long term (current) drug therapy
CPT/HCPCS: 66984; J0697; J1097; J2250; J3010; V2632

== ENCOUNTER 2022-07-30 06:22 | Day surgery (SDC) | payer MEDICARE ==
[~2022-07-30] VITALS: Ht 167.6 cm; Wt 77.3 kg
[~2022-07-30 06:22] MED LIST changes: -BSS IRR 500ML/OMIDRIA 4ML IRR BAG (OR ONLY) As Ordered ONE; -CEFUROXIME 1MG/0.1ML INTRACAMERAL INJ As Ordered ONE; -CYCLOPENTOLATE 1% OPHTH SOLN 2ML BTL OD SCH; +CYCLOPENTOLATE 1% OPHTH SOLN 2ML BTL OS SCH; -LIDOCAINE 1% SDV 5ML VIAL As Ordered ONE; -OFLOXACIN 0.3 % (OCUFLOX) OPTH SOL 5ML OD SCH; +OFLOXACIN 0.3 % (OCUFLOX) OPTH SOL 5ML OS SCH; -PHENYLEPHRINE 2.5% OPHTH SOL 2ML OD SCH; +PHENYLEPHRINE 2.5% OPHTH SOL 2ML OS SCH; -PROPARACAINE 0.5% OPHTH SOL 15ML OD ONE; +PROPARACAINE 0.5% OPHTH SOL 15ML OS ONE; -TROPICAMIDE 1% OPHTH SOLN 15ML OD SCH; +TROPICAMIDE 1% OPHTH SOLN 15ML OS SCH
[2022-07-30] MEDS ORDERED: LIDOCAINE 1% SDV 5ML VIAL As Ordered ONE (06:46)
[2022-07-30] MEDS ORDERED: CEFUROXIME 1MG/0.1ML INTRACAMERAL INJ As Ordered ONE (06:47)
[2022-07-30] MEDS ORDERED: BSS IRR 500ML/OMIDRIA 4ML IRR BAG (OR ONLY) As Ordered ONE (06:47)
[2022-07-30] MEDS ORDERED: MIDAZOLAM INJ 2MG/2ML VIAL As Ordered ONE (07:39)
[2022-07-30] MEDS ORDERED: fentaNYL 100 MCG/2 ML INJECTION As Ordered ONE (07:39)
[2022-07-30] MEDS ORDERED: TOBRADEX OPHTH OINT 3.5 GM As Ordered ONE (08:37)
[2022-07-30 08:50] VITALS: BP 138/73
== END 2022-07-30 09:12 | disposition home or self-care (01) ==
LOC: M SDC 06:22
PROVIDERS: ATTEND Ophthalmology
DX: H25.12 Age-related nuclear cataract, left eye (principal); H11.442 Conjunctival cysts, left eye; I10 Essential (primary) hypertension; E78.5 Hyperlipidemia, unspecified; E03.9 Hypothyroidism, unspecified; K59.00 Constipation, unspecified; F41.9 Anxiety disorder, unspecified; F32.A Depression, unspecified; Z86.73 Personal history of transient ischemic attack (TIA), and cerebral infarction without residual deficits; Z88.2 Allergy status to sulfonamides; Z91.018 Allergy to other foods; Z79.02 Long term (current) use of antithrombotics/antiplatelets; Z79.82 Long term (current) use of aspirin; Z79.01 Long term (current) use of anticoagulants; Z79.899 Other long term (current) drug therapy
CPT/HCPCS: 66984; 68110; 88304; J0697; J1097; J2250; J3010; V2632

== ENCOUNTER 2022-08-31 12:55 | Observation (INO) | payer MEDICARE ==
[~2022-08-31] VITALS: Ht 175.3 cm; Wt 77.3 kg
[~2022-08-31 12:55] MED LIST changes: -CYCLOPENTOLATE 1% OPHTH SOLN 2ML BTL OS SCH; -OFLOXACIN 0.3 % (OCUFLOX) OPTH SOL 5ML OS SCH; -PHENYLEPHRINE 2.5% OPHTH SOL 2ML OS SCH; -PROPARACAINE 0.5% OPHTH SOL 15ML OS ONE; -TROPICAMIDE 1% OPHTH SOLN 15ML OS SCH
[2022-08-31 13:51] LABS: VENOUS BASE EXCESS -6.2 (-2.0-2.0); VENOUS HCO3 18.4 MMOL/L (23.0-27.0); VENOUS O2 SATURATION 79.5 % (60.0-80.0); VENOUS PARTIAL PRESSURE CO2 33.1 mmHg (38.0-50.0); VENOUS PARTIAL PRESSURE O2 48.2 mmHg (30.0-50.0); VENOUS PH 7.363 UNITS (7.330-7.430); VENOUS TOTAL CO2 19.4 MMOL/L (24.0-28.0)
[2022-08-31 13:56] LABS: BASO # 0.1 10^3/uL (0.0-0.2); BASO % 1.2 % (0.0-1.0); EOS # 0.2 10^3/uL (0.0-0.5); EOS % 2.1 % (0.0-3.0); HEMATOCRIT 25.6 % (36.0-47.0); HEMOGLOBIN 8.1 g/dl (12.0-15.5); LYMPH # 1.6 10^3/uL (1.5-5.0); LYMPH % 17.8 % (24.0-44.0); MEAN CORPUSCULAR HEMOGLOBIN 29.6 pg (27.0-33.0); MEAN CORPUSCULAR HGB CONC 31.6 g/dl (32.0-36.5); MEAN CORPUSCULAR VOLUME 93.4 fl (80.0-96.0); MONO # 0.7 10^3/uL (0.0-0.8); MONO % 7.5 % (2.0-8.0); NEUTROPHILS # 6.5 10^3/uL (1.5-8.5); NEUTROPHILS % 71.1 % (36.0-66.0); PLATELET COUNT, AUTOMATED 389 10^3/uL (150-450); RED BLOOD COUNT 2.74 10^6/uL (4.00-5.40); WHITE BLOOD COUNT 9.1 10^3/uL (4.0-10.0)
[2022-08-31 14:22] LABS: ALBUMIN 3.2 G/DL (3.2-5.2); ALKALINE PHOSPHATASE 199 U/L (46-116); ALT/SGPT 36 U/L (7.0-40); AST/SGOT 18 U/L (<34); BILIRUBIN,DIRECT < 0.1 MG/DL (<0.4); BILIRUBIN,TOTAL 0.2 MG/DL (0.3-1.2); BLOOD UREA NITROGEN 60 MG/DL (9-23); CALCIUM LEVEL 8.7 MG/DL (8.3-10.6); CARBON DIOXIDE LEVEL 20 MMOL/L (20-31); CHLORIDE LEVEL 104 MMOL/L (98-107); CREATININE FOR GFR 0.95 MG/DL (0.55-1.30); GLOMERULAR FILTRATION RATE > 60.0 (>32); GLUCOSE, FASTING 132 MG/DL (74-106); POTASSIUM SERUM 4.5 MMOL/L (3.5-5.1); SODIUM LEVEL 136 MMOL/L (136-145); TOTAL PROTEIN 5.8 G/DL (5.7-8.2)
[2022-08-31 14:24] LABS: OSMOLALITY SERUM 300 MOSM/KG (280-301)
[2022-08-31] MEDS ORDERED: NS 500 ML IV ONE (14:25)
[2022-08-31] MEDS ORDERED: MECL-136 PO (15:59)
[2022-08-31] MEDS ORDERED: NORT10CA2 PO (15:59)
[2022-08-31] MEDS ORDERED: HOME MED LIST COMPLETE! XX SCH (16:00)
[2022-08-31 17:30] LABS: IRON (FE) 68 UG/DL (50-170); PERCENT SATURATION 23.3 % (13.2-45.0); TOTAL IRON BINDING CAPACITY 292 UG/DL (250-425)
[2022-08-31 17:33] LABS: FERRITIN 31.3 NG/ML (7.3-270.7); FOLATE 8.59 NG/ML (>5.4); VITAMIN B12 LEVEL 242 PG/ML (211-911)
[2022-08-31 19:00] VITALS: BP 120/67; TEMP 98.2; O2SAT 100
[2022-08-31] MEDS ORDERED: ENOXAPARIN 40MG/0.4ML SYRINGE (J1650 PER 10MG) SC SCH (21:00)
[2022-08-31] MEDS: NORTRIPTYLINE 10 MG CAP PO PRN (21:14)
[2022-08-31 22:45] VITALS: BP 115/68; TEMP 97.2; O2SAT 99
[2022-09-01] VITALS (17 sets, daily range): BP systolic 98–154; BP diastolic 52–71; TEMP 96.6–97.9; O2SAT 95–100
[2022-09-01] MEDS ORDERED: traMADol 50 MG TAB PO ONE (03:00)
[2022-09-01] MEDS: LEVOTHYROXINE 50MCG TABLET (0.05MG) PO SCH (05:19)
[2022-09-01 06:13] LABS: MEAN CORPUSCULAR HEMOGLOBIN 29.5 pg (27.0-33.0); MEAN CORPUSCULAR HGB CONC 31.3 g/dl (32.0-36.5); MEAN CORPUSCULAR VOLUME 94.2 fl (80.0-96.0); RED BLOOD COUNT 2.07 10^6/uL (4.00-5.40); WHITE BLOOD COUNT 7.5 10^3/uL (4.0-10.0)
[2022-09-01 06:22] LABS: HEMATOCRIT 19.5 % (36.0-47.0); HEMOGLOBIN 6.1 g/dl (12.0-15.5); PLATELET COUNT, AUTOMATED 282 10^3/uL (150-450)
[2022-09-01 06:36] LABS: CALCIUM LEVEL 8.5 MG/DL (8.3-10.6); CREATININE FOR GFR 1.01 MG/DL (0.55-1.30); GLOMERULAR FILTRATION RATE 56.1 (>32); PHOSPHORUS LEVEL 3.8 MG/DL (2.4-5.1); POTASSIUM SERUM 3.9 MMOL/L (3.5-5.1)
[2022-09-01] MEDS ORDERED: NS 1,000 ML IV ONE (06:50)
[2022-09-01 07:15] LABS: HEMATOCRIT 18.3 % (36.0-47.0); HEMOGLOBIN 5.8 g/dl (12.0-15.5)
[2022-09-01] MEDS: PANTOPRAZOLE 40MG VIAL IV SCH ×2 (08:16→20:38)
[2022-09-01] MEDS: MONTELUKAST 10 MG TAB PO SCH (08:17)
[2022-09-01] MEDS: SUCRALFATE 1 GM TAB PO SCH ×3 (08:17→17:51)
[2022-09-01] MEDS: SENNA 8.6 MG TAB (SENOKOT) PO SCH (08:17)
[2022-09-01] MEDS: ACETAMINOPHEN 650MG ER TAB (TYLENOL ARTHRITIS) PO SCH (08:17)
[2022-09-01] MEDS: VENLAFAXINE **XR** 75MG CAPSULE PO SCH (08:18)
[2022-09-01] MEDS: ATORVASTATIN 20 MG TAB PO SCH (08:18)
[2022-09-01] MEDS: MIRALAX *UNIT DOSE* 17GM PACKET PO SCH (08:22)
[2022-09-01] MEDS ORDERED: ASPIRIN 81MG ENTERIC TABLET PO SCH (09:00)
[2022-09-01] MEDS ORDERED: CO-ENZYME Q10 50 MG CAP PO SCH (09:00)
[2022-09-01] MEDS ORDERED: CLOPIDOGREL 75 MG TAB PO SCH (09:00)
[2022-09-01] MEDS ORDERED: VENLAFAXINE **XR** 75MG CAPSULE PO SCH (09:00)
[2022-09-01] MEDS: diphenhydrAMINE CREAM 30GM TOP PRN (10:50)
[2022-09-01] MEDS: guaiFENesin DM LIQ 10ML UD PO PRN ×2 (10:50→20:39)
[2022-09-01 18:23] LABS: MEAN CORPUSCULAR HEMOGLOBIN 29.2 pg (27.0-33.0); MEAN CORPUSCULAR HGB CONC 32.3 g/dl (32.0-36.5); MEAN CORPUSCULAR VOLUME 90.4 fl (80.0-96.0); PLATELET COUNT, AUTOMATED 231 10^3/uL (150-450); RED BLOOD COUNT 3.43 10^6/uL (4.00-5.40); WHITE BLOOD COUNT 5.7 10^3/uL (4.0-10.0)
[2022-09-01] MEDS: NORTRIPTYLINE 10 MG CAP PO PRN (21:03)
[2022-09-01] MEDS: SODIUM CHLORIDE NASAL 0.65% SPRAY BTL (OCEAN) PRN (21:03)
[2022-09-02] MEDS: SUCRALFATE 1 GM TAB PO SCH ×4 (00:40→17:21)
[2022-09-02 02:00] VITALS: BP 128/63; TEMP 97.5; O2SAT 95
[2022-09-02] MEDS ORDERED: BENAZEPRIL 20 MG TAB PO ONE (05:35)
[2022-09-02] MEDS: LEVOTHYROXINE 50MCG TABLET (0.05MG) PO SCH (05:43)
[2022-09-02 06:00] VITALS: BP 162/80; TEMP 97; O2SAT 94
[2022-09-02 06:07] LABS: BASO # 0.1 10^3/uL (0.0-0.2); BASO % 1.1 % (0.0-1.0); EOS # 0.4 10^3/uL (0.0-0.5); EOS % 6.5 % (0.0-3.0); HEMATOCRIT 31.4 % (36.0-47.0); HEMOGLOBIN 10.1 g/dl (12.0-15.5); LYMPH # 1.7 10^3/uL (1.5-5.0); LYMPH % 30.8 % (24.0-44.0); MEAN CORPUSCULAR HGB CONC 32.2 g/dl (32.0-36.5); MEAN CORPUSCULAR VOLUME 90.2 fl (80.0-96.0); MONO # 0.4 10^3/uL (0.0-0.8); MONO % 6.5 % (2.0-8.0); NEUTROPHILS # 3.1 10^3/uL (1.5-8.5); NEUTROPHILS % 54.7 % (36.0-66.0); PLATELET COUNT, AUTOMATED 232 10^3/uL (150-450); RED BLOOD COUNT 3.48 10^6/uL (4.00-5.40); WHITE BLOOD COUNT 5.6 10^3/uL (4.0-10.0)
[2022-09-02 06:43] LABS: ALKALINE PHOSPHATASE 149 U/L (46-116); ALT/SGPT 24 U/L (7.0-40); AST/SGOT 15 U/L (<34); BILIRUBIN,TOTAL 0.7 MG/DL (0.3-1.2); BLOOD UREA NITROGEN 19 MG/DL (9-23); CALCIUM LEVEL 8.6 MG/DL (8.3-10.6); CARBON DIOXIDE LEVEL 23 MMOL/L (20-31); CHLORIDE LEVEL 108 MMOL/L (98-107); CREATININE FOR GFR 0.85 MG/DL (0.55-1.30); GLOMERULAR FILTRATION RATE > 60.0 (>32); GLUCOSE, FASTING 98 MG/DL (74-106); MAGNESIUM LEVEL 1.9 MG/DL (1.8-2.4); PHOSPHORUS LEVEL 3.1 MG/DL (2.4-5.1); POTASSIUM SERUM 4.1 MMOL/L (3.5-5.1); SODIUM LEVEL 137 MMOL/L (136-145); TOTAL PROTEIN 5.2 G/DL (5.7-8.2)
[2022-09-02] MEDS: SODIUM CHLORIDE NASAL 0.65% SPRAY BTL (OCEAN) PRN (07:37)
[2022-09-02] MEDS: guaiFENesin DM LIQ 10ML UD PO PRN (07:37)
[2022-09-02] MEDS: MIRALAX *UNIT DOSE* 17GM PACKET PO SCH (08:58)
[2022-09-02] MEDS: VENLAFAXINE **XR** 75MG CAPSULE PO SCH (08:59)
[2022-09-02] MEDS: ATORVASTATIN 20 MG TAB PO SCH (08:59)
[2022-09-02] MEDS: MONTELUKAST 10 MG TAB PO SCH (08:59)
[2022-09-02] MEDS: PANTOPRAZOLE 40MG VIAL IV SCH ×2 (08:59→21:32)
[2022-09-02] MEDS: SENNA 8.6 MG TAB (SENOKOT) PO SCH (08:59)
[2022-09-02] MEDS: ACETAMINOPHEN 650MG ER TAB (TYLENOL ARTHRITIS) PO SCH (08:59)
[2022-09-02 10:00] VITALS: BP 165/82; TEMP 97.7; O2SAT 97
[2022-09-02] MEDS ORDERED: ENTRESTO 24-26MG TABLET (SACUBITRIL/VALSARTAN) PO SCH (10:50)
[2022-09-02] MEDS: ASPIRIN 81MG CHEW TABLET PO SCH (11:22)
[2022-09-02] MEDS ORDERED: LORazepam 0.5 MG TAB PO PRN (11:25)
[2022-09-02 14:00] VITALS: BP 138/69; TEMP 97.5; O2SAT 97
[2022-09-02] MEDS: CYANOCOBALAMIN 1,000MCG/ML 1ML VIAL IM SCH (17:21)
[2022-09-02 18:00] VITALS: BP 175/83; TEMP 97.5; O2SAT 100
[2022-09-02 18:37] LABS: HEMATOCRIT 30.7 % (36.0-47.0); HEMOGLOBIN 10.3 g/dl (12.0-15.5); MEAN CORPUSCULAR HEMOGLOBIN 29.5 pg (27.0-33.0); MEAN CORPUSCULAR HGB CONC 33.6 g/dl (32.0-36.5); PLATELET COUNT, AUTOMATED 228 10^3/uL (150-450); RED BLOOD COUNT 3.49 10^6/uL (4.00-5.40); WHITE BLOOD COUNT 6.1 10^3/uL (4.0-10.0)
[2022-09-02 22:00] VITALS: BP 172/85; TEMP 97.7; O2SAT 98
[2022-09-02] MEDS: NORTRIPTYLINE 10 MG CAP PO PRN (22:44)
[2022-09-03] MEDS: SUCRALFATE 1 GM TAB PO SCH ×4 (00:19→19:18)
[2022-09-03 02:00] VITALS: BP 169/84; TEMP 97.7; O2SAT 98
[2022-09-03] MEDS: LEVOTHYROXINE 50MCG TABLET (0.05MG) PO SCH (05:47)
[2022-09-03 06:00] VITALS: BP 168/84; TEMP 97.3; O2SAT 97
[2022-09-03 07:38] LABS: HEMATOCRIT 33.5 % (36.0-47.0); MEAN CORPUSCULAR HEMOGLOBIN 29.4 pg (27.0-33.0); MEAN CORPUSCULAR HGB CONC 32.8 g/dl (32.0-36.5); MEAN CORPUSCULAR VOLUME 89.6 fl (80.0-96.0); PLATELET COUNT, AUTOMATED 252 10^3/uL (150-450); RED BLOOD COUNT 3.74 10^6/uL (4.00-5.40); WHITE BLOOD COUNT 5.6 10^3/uL (4.0-10.0)
[2022-09-03 08:18] LABS: BLOOD UREA NITROGEN 11 MG/DL (9-23); CALCIUM LEVEL 8.5 MG/DL (8.3-10.6); CARBON DIOXIDE LEVEL 25 MMOL/L (20-31); CHLORIDE LEVEL 103 MMOL/L (98-107); CHOLESTEROL LEVEL 128 MG/DL (<200); CHOLESTEROL RISK RATIO 3.91 (<5); CREATININE FOR GFR 0.82 MG/DL (0.55-1.30); GLOMERULAR FILTRATION RATE > 60.0 (>32); GLUCOSE, FASTING 96 MG/DL (74-106); HDL CHOLESTEROL 32.7 MG/DL (>40); LDL CHOLESTEROL 70.9 MG/DL (<100); NON-HDL-C 95.3 MG/DL; POTASSIUM SERUM 4.1 MMOL/L (3.5-5.1); SODIUM LEVEL 138 MMOL/L (136-145); TRIGLYCERIDES LEVEL 122 MG/DL (<150)
[2022-09-03] MEDS: ACETAMINOPHEN 650MG ER TAB (TYLENOL ARTHRITIS) PO SCH (09:17)
[2022-09-03] MEDS: PANTOPRAZOLE 40MG VIAL IV SCH ×2 (09:17→20:41)
[2022-09-03] MEDS: ATORVASTATIN 20 MG TAB PO SCH (09:17)
[2022-09-03] MEDS: VENLAFAXINE **XR** 75MG CAPSULE PO SCH (09:17)
[2022-09-03] MEDS: SENNA 8.6 MG TAB (SENOKOT) PO SCH (09:17)
[2022-09-03] MEDS: MONTELUKAST 10 MG TAB PO SCH (09:17)
[2022-09-03] MEDS: CEFDINIR 300 MG CAP (OMNICEF) PO SCH ×2 (09:17→20:42)
[2022-09-03] MEDS: FUROSEMIDE 20 MG TAB PO SCH (09:18)
[2022-09-03] MEDS: CYANOCOBALAMIN 1,000MCG/ML 1ML VIAL IM SCH (09:18)
[2022-09-03] MEDS: METOPROLOL SUCC (TopROL XL) 50MG **XL** TAB PO SCH (09:18)
[2022-09-03] MEDS: MIRALAX *UNIT DOSE* 17GM PACKET PO SCH (09:18)
[2022-09-03] MEDS: ASPIRIN 81MG CHEW TABLET PO SCH (09:18)
[2022-09-03 10:00] VITALS: BP 131/74; TEMP 97.7; O2SAT 98
[2022-09-03] MEDS: CLOPIDOGREL 75 MG TAB PO SCH (11:51)
[2022-09-03 14:00] VITALS: BP 147/80; TEMP 97.7; O2SAT 97
[2022-09-03] MEDS: HEPARIN SOD (PORCINE) 5000UNITS/ML 1ML VIAL/SYRINGE SQ SCH ×2 (15:09→22:07)
[2022-09-03 18:00] VITALS: BP 145/80; TEMP 97.5; O2SAT 96
[2022-09-03 19:48] VITALS: BP 142/80; TEMP 97; O2SAT 99
[2022-09-03] MEDS: NORTRIPTYLINE 10 MG CAP PO PRN (20:41)
[2022-09-03] MEDS: ENTRESTO 24-26MG TABLET (SACUBITRIL/VALSARTAN) PO SCH (20:42)
[2022-09-04] MEDS: SUCRALFATE 1 GM TAB PO SCH ×5 (00:20→23:35)
[2022-09-04 01:30] VITALS: BP 136/76; TEMP 97.7; O2SAT 93
[2022-09-04 05:20] VITALS: BP 135/73; TEMP 97.3; O2SAT 96
[2022-09-04] MEDS: HEPARIN SOD (PORCINE) 5000UNITS/ML 1ML VIAL/SYRINGE SQ SCH ×3 (06:11→21:13)
[2022-09-04] MEDS: LEVOTHYROXINE 50MCG TABLET (0.05MG) PO SCH (06:11)
[2022-09-04 06:25] LABS: HEMATOCRIT 32.2 % (36.0-47.0); HEMOGLOBIN 10.6 g/dl (12.0-15.5); MEAN CORPUSCULAR HEMOGLOBIN 29.8 pg (27.0-33.0); MEAN CORPUSCULAR HGB CONC 32.9 g/dl (32.0-36.5); MEAN CORPUSCULAR VOLUME 90.4 fl (80.0-96.0); PLATELET COUNT, AUTOMATED 246 10^3/uL (150-450); RED BLOOD COUNT 3.56 10^6/uL (4.00-5.40); WHITE BLOOD COUNT 4.9 10^3/uL (4.0-10.0)
[2022-09-04 09:00] VITALS: BP 144/74; TEMP 97.3; O2SAT 98
[2022-09-04] MEDS: MIRALAX *UNIT DOSE* 17GM PACKET PO SCH (09:03)
[2022-09-04] MEDS: CEFDINIR 300 MG CAP (OMNICEF) PO SCH ×2 (09:03→21:13)
[2022-09-04] MEDS: ENTRESTO 24-26MG TABLET (SACUBITRIL/VALSARTAN) PO SCH ×2 (09:03→21:13)
[2022-09-04] MEDS: CYANOCOBALAMIN 1,000MCG/ML 1ML VIAL IM SCH (09:03)
[2022-09-04] MEDS: ATORVASTATIN 20 MG TAB PO SCH (09:03)
[2022-09-04] MEDS: METOPROLOL SUCC (TopROL XL) 50MG **XL** TAB PO SCH (09:03)
[2022-09-04] MEDS: ACETAMINOPHEN 650MG ER TAB (TYLENOL ARTHRITIS) PO SCH (09:03)
[2022-09-04] MEDS: CLOPIDOGREL 75 MG TAB PO SCH (09:04)
[2022-09-04] MEDS: FUROSEMIDE 20 MG TAB PO SCH (09:04)
[2022-09-04] MEDS: ASPIRIN 81MG CHEW TABLET PO SCH (09:04)
[2022-09-04] MEDS: VENLAFAXINE **XR** 75MG CAPSULE PO SCH (09:04)
[2022-09-04] MEDS: SENNA 8.6 MG TAB (SENOKOT) PO SCH (09:04)
[2022-09-04] MEDS: MONTELUKAST 10 MG TAB PO SCH (09:04)
[2022-09-04] MEDS: PANTOPRAZOLE 40MG VIAL IV SCH ×2 (09:05→21:13)
[2022-09-04 20:54] VITALS: BP 151/86
[2022-09-04] MEDS: diphenhydrAMINE CREAM 30GM TOP PRN (21:13)
[2022-09-05 04:58] VITALS: BP 153/85; TEMP 97.3; O2SAT 96
[2022-09-05] MEDS: LEVOTHYROXINE 50MCG TABLET (0.05MG) PO SCH (05:34)
[2022-09-05] MEDS: HEPARIN SOD (PORCINE) 5000UNITS/ML 1ML VIAL/SYRINGE SQ SCH ×3 (05:34→21:06)
[2022-09-05] MEDS: SUCRALFATE 1 GM TAB PO SCH ×4 (05:34→23:17)
[2022-09-05 05:57] LABS: HEMATOCRIT 34.3 % (36.0-47.0); HEMOGLOBIN 11.4 g/dl (12.0-15.5); MEAN CORPUSCULAR HEMOGLOBIN 29.5 pg (27.0-33.0); MEAN CORPUSCULAR HGB CONC 33.2 g/dl (32.0-36.5); MEAN CORPUSCULAR VOLUME 88.6 fl (80.0-96.0); PLATELET COUNT, AUTOMATED 247 10^3/uL (150-450); RED BLOOD COUNT 3.87 10^6/uL (4.00-5.40)
[2022-09-05 06:19] LABS: BLOOD UREA NITROGEN 14 MG/DL (9-23); CALCIUM LEVEL 8.7 MG/DL (8.3-10.6); CARBON DIOXIDE LEVEL 25 MMOL/L (20-31); CHLORIDE LEVEL 101 MMOL/L (98-107); CREATININE FOR GFR 0.76 MG/DL (0.55-1.30); GLOMERULAR FILTRATION RATE > 60.0 (>32); GLUCOSE, FASTING 102 MG/DL (74-106); POTASSIUM SERUM 3.8 MMOL/L (3.5-5.1); SODIUM LEVEL 135 MMOL/L (136-145)
[2022-09-05 09:33] VITALS: BP 157/83
[2022-09-05] MEDS: FUROSEMIDE 20 MG TAB PO SCH (09:48)
[2022-09-05] MEDS: CEFDINIR 300 MG CAP (OMNICEF) PO SCH ×2 (09:48→21:05)
[2022-09-05] MEDS: PANTOPRAZOLE 40MG VIAL IV SCH (09:48)
[2022-09-05] MEDS: CYANOCOBALAMIN 1,000MCG/ML 1ML VIAL IM SCH (09:48)
[2022-09-05] MEDS: VENLAFAXINE **XR** 75MG CAPSULE PO SCH (09:48)
[2022-09-05] MEDS: ATORVASTATIN 20 MG TAB PO SCH (09:49)
[2022-09-05] MEDS: METOPROLOL SUCC (TopROL XL) 50MG **XL** TAB PO SCH (09:49)
[2022-09-05] MEDS: MONTELUKAST 10 MG TAB PO SCH (09:49)
[2022-09-05] MEDS: CLOPIDOGREL 75 MG TAB PO SCH (09:49)
[2022-09-05] MEDS: ASPIRIN 81MG CHEW TABLET PO SCH (09:49)
[2022-09-05] MEDS: ENTRESTO 24-26MG TABLET (SACUBITRIL/VALSARTAN) PO SCH ×2 (09:49→21:06)
[2022-09-05] MEDS: SENNA 8.6 MG TAB (SENOKOT) PO SCH (09:49)
[2022-09-05] MEDS: ACETAMINOPHEN 650MG ER TAB (TYLENOL ARTHRITIS) PO SCH (09:49)
[2022-09-05] MEDS: MIRALAX *UNIT DOSE* 17GM PACKET PO SCH (09:55)
[2022-09-05] MEDS ORDERED: carisoprodoL 350 MG TAB PO ONE (19:50)
[2022-09-05] MEDS: PANTOPRAZOLE 40MG TAB (PROTONIX) PO SCH (21:05)
[2022-09-06 05:48] VITALS: BP 154/70; TEMP 98.1; O2SAT 97
[2022-09-06] MEDS: SUCRALFATE 1 GM TAB PO SCH ×4 (06:00→23:39)
[2022-09-06] MEDS: HEPARIN SOD (PORCINE) 5000UNITS/ML 1ML VIAL/SYRINGE SQ SCH ×3 (06:00→20:56)
[2022-09-06] MEDS: LEVOTHYROXINE 50MCG TABLET (0.05MG) PO SCH (06:00)
[2022-09-06] MEDS: CYANOCOBALAMIN 1,000MCG/ML 1ML VIAL IM SCH (08:44)
[2022-09-06] MEDS: ACETAMINOPHEN 650MG ER TAB (TYLENOL ARTHRITIS) PO SCH (08:46)
[2022-09-06] MEDS: VENLAFAXINE **XR** 75MG CAPSULE PO SCH (08:47)
[2022-09-06] MEDS: ATORVASTATIN 20 MG TAB PO SCH (08:47)
[2022-09-06] MEDS: ASPIRIN 81MG CHEW TABLET PO SCH (08:48)
[2022-09-06] MEDS: CEFDINIR 300 MG CAP (OMNICEF) PO SCH ×2 (08:48→20:56)
[2022-09-06] MEDS: MONTELUKAST 10 MG TAB PO SCH (08:49)
[2022-09-06] MEDS: PANTOPRAZOLE 40MG TAB (PROTONIX) PO SCH ×2 (08:49→20:56)
[2022-09-06] MEDS: CLOPIDOGREL 75 MG TAB PO SCH (08:49)
[2022-09-06] MEDS: SENNA 8.6 MG TAB (SENOKOT) PO SCH (08:51)
[2022-09-06] MEDS: MIRALAX *UNIT DOSE* 17GM PACKET PO SCH (08:51)
[2022-09-06] MEDS: FUROSEMIDE 20 MG TAB PO SCH (08:52)
[2022-09-06] MEDS: METOPROLOL SUCC (TopROL XL) 50MG **XL** TAB PO SCH (08:52)
[2022-09-06] MEDS: ENTRESTO 24-26MG TABLET (SACUBITRIL/VALSARTAN) PO SCH ×2 (08:56→20:57)
[2022-09-06 20:57] VITALS: BP 110/63
[2022-09-06] MEDS: ACETAMINOPHEN 650MG ER TAB (TYLENOL ARTHRITIS) PO PRN (21:54)
[2022-09-06] MEDS: LIDOCAINE 5% (LIDODERM) PATCH TD SCH (21:54)
[2022-09-06] MEDS: NORTRIPTYLINE 10 MG CAP PO PRN (21:54)
[2022-09-07] MEDS: HEPARIN SOD (PORCINE) 5000UNITS/ML 1ML VIAL/SYRINGE SQ SCH ×3 (05:18→21:26)
[2022-09-07] MEDS: SUCRALFATE 1 GM TAB PO SCH ×3 (05:18→17:23)
[2022-09-07] MEDS: LEVOTHYROXINE 50MCG TABLET (0.05MG) PO SCH (05:18)
[2022-09-07 06:00] VITALS: BP 138/63; TEMP 97.2; O2SAT 97
[2022-09-07] MEDS: CEFDINIR 300 MG CAP (OMNICEF) PO SCH ×2 (08:14→21:26)
[2022-09-07] MEDS: CYANOCOBALAMIN 1,000MCG/ML 1ML VIAL IM SCH (08:14)
[2022-09-07] MEDS: MONTELUKAST 10 MG TAB PO SCH (08:15)
[2022-09-07] MEDS: SENNA 8.6 MG TAB (SENOKOT) PO SCH (08:15)
[2022-09-07] MEDS: FUROSEMIDE 20 MG TAB PO SCH (08:15)
[2022-09-07] MEDS: CLOPIDOGREL 75 MG TAB PO SCH (08:16)
[2022-09-07] MEDS: ASPIRIN 81MG CHEW TABLET PO SCH (08:16)
[2022-09-07] MEDS: PANTOPRAZOLE 40MG TAB (PROTONIX) PO SCH ×2 (08:16→21:26)
[2022-09-07] MEDS: METOPROLOL SUCC (TopROL XL) 50MG **XL** TAB PO SCH (08:16)
[2022-09-07] MEDS: ATORVASTATIN 20 MG TAB PO SCH (08:16)
[2022-09-07] MEDS: MIRALAX *UNIT DOSE* 17GM PACKET PO SCH (08:17)
[2022-09-07] MEDS: VENLAFAXINE **XR** 75MG CAPSULE PO SCH (08:17)
[2022-09-07] MEDS: ACETAMINOPHEN 650MG ER TAB (TYLENOL ARTHRITIS) PO SCH (08:17)
[2022-09-07] MEDS: ENTRESTO 24-26MG TABLET (SACUBITRIL/VALSARTAN) PO SCH ×2 (08:27→21:31)
[2022-09-07] MEDS: LIDOCAINE 5% (LIDODERM) PATCH TD SCH (21:00)
[2022-09-07 21:31] VITALS: BP 126/74
[2022-09-07] MEDS: NORTRIPTYLINE 10 MG CAP PO PRN (22:16)
[2022-09-08] MEDS: SUCRALFATE 1 GM TAB PO SCH ×5 (00:06→23:13)
[2022-09-08] MEDS: ACETAMINOPHEN 650MG ER TAB (TYLENOL ARTHRITIS) PO PRN ×2 (03:07→22:45)
[2022-09-08] MEDS: LEVOTHYROXINE 50MCG TABLET (0.05MG) PO SCH (05:03)
[2022-09-08] MEDS: HEPARIN SOD (PORCINE) 5000UNITS/ML 1ML VIAL/SYRINGE SQ SCH ×3 (05:03→20:38)
[2022-09-08 06:00] VITALS: BP 164/82; TEMP 97; O2SAT 95
[2022-09-08] MEDS: MIRALAX *UNIT DOSE* 17GM PACKET PO SCH (08:35)
[2022-09-08] MEDS: CYANOCOBALAMIN 1,000MCG/ML 1ML VIAL IM SCH (08:35)
[2022-09-08] MEDS: ATORVASTATIN 20 MG TAB PO SCH (08:36)
[2022-09-08] MEDS: ENTRESTO 24-26MG TABLET (SACUBITRIL/VALSARTAN) PO SCH ×2 (08:36→20:47)
[2022-09-08] MEDS: VENLAFAXINE **XR** 75MG CAPSULE PO SCH (08:36)
[2022-09-08] MEDS: METOPROLOL SUCC (TopROL XL) 50MG **XL** TAB PO SCH (08:37)
[2022-09-08] MEDS: ACETAMINOPHEN 650MG ER TAB (TYLENOL ARTHRITIS) PO SCH (08:37)
[2022-09-08] MEDS: PANTOPRAZOLE 40MG TAB (PROTONIX) PO SCH ×2 (08:37→20:39)
[2022-09-08] MEDS: SENNA 8.6 MG TAB (SENOKOT) PO SCH (08:37)
[2022-09-08] MEDS: FUROSEMIDE 20 MG TAB PO SCH (08:37)
[2022-09-08] MEDS: MONTELUKAST 10 MG TAB PO SCH (08:37)
[2022-09-08] MEDS: CLOPIDOGREL 75 MG TAB PO SCH (08:37)
[2022-09-08] MEDS: ASPIRIN 81MG CHEW TABLET PO SCH (08:37)
[2022-09-08] MEDS: CALCIPOTRIENE CREAM 0.005% 60GM TOP SCH ×2 (13:17→20:42)
[2022-09-08 19:40] VITALS: BP 144/88
[2022-09-08] MEDS: LIDOCAINE 5% (LIDODERM) PATCH TD SCH (20:39)
[2022-09-08] MEDS: CLOBETASOL PROPIONATE EMOLLIENT 0.05% CR 60 GM TOP SCH (20:40)
[2022-09-08 20:53] VITALS: BP 140/73
[2022-09-08] MEDS: NORTRIPTYLINE 10 MG CAP PO PRN (22:45)
[2022-09-09 05:06] VITALS: BP 137/73; TEMP 97.9; O2SAT 96
[2022-09-09] MEDS: HEPARIN SOD (PORCINE) 5000UNITS/ML 1ML VIAL/SYRINGE SQ SCH ×3 (05:18→21:13)
[2022-09-09] MEDS: SUCRALFATE 1 GM TAB PO SCH ×4 (05:18→23:26)
[2022-09-09] MEDS: LEVOTHYROXINE 50MCG TABLET (0.05MG) PO SCH (05:18)
[2022-09-09] MEDS: ACETAMINOPHEN 650MG ER TAB (TYLENOL ARTHRITIS) PO SCH (09:00)
[2022-09-09] MEDS: CALCIPOTRIENE CREAM 0.005% 60GM TOP SCH ×2 (09:00→21:13)
[2022-09-09] MEDS: MIRALAX *UNIT DOSE* 17GM PACKET PO SCH (09:00)
[2022-09-09] MEDS: ENTRESTO 24-26MG TABLET (SACUBITRIL/VALSARTAN) PO SCH ×2 (09:00→21:10)
[2022-09-09] MEDS: CLOBETASOL PROPIONATE EMOLLIENT 0.05% CR 60 GM TOP SCH ×2 (09:00→21:12)
[2022-09-09] MEDS: CLOPIDOGREL 75 MG TAB PO SCH (09:01)
[2022-09-09] MEDS: VENLAFAXINE **XR** 75MG CAPSULE PO SCH (09:01)
[2022-09-09] MEDS: SENNA 8.6 MG TAB (SENOKOT) PO SCH (09:01)
[2022-09-09] MEDS: MONTELUKAST 10 MG TAB PO SCH (09:01)
[2022-09-09] MEDS: ATORVASTATIN 20 MG TAB PO SCH (09:01)
[2022-09-09] MEDS: FUROSEMIDE 20 MG TAB PO SCH (09:01)
[2022-09-09] MEDS: ASPIRIN 81MG CHEW TABLET PO SCH (09:01)
[2022-09-09] MEDS: PANTOPRAZOLE 40MG TAB (PROTONIX) PO SCH ×2 (09:01→21:10)
[2022-09-09] MEDS: CYANOCOBALAMIN 1,000MCG/ML 1ML VIAL IM SCH (09:02)
[2022-09-09] MEDS: METOPROLOL SUCC (TopROL XL) 50MG **XL** TAB PO SCH (09:02)
[2022-09-09] MEDS: FLUTICASONE PROP 0.05% NASAL SPRAY 16 GM (FLONASE) NARES SCH ×2 (15:15→21:11)
[2022-09-09] MEDS: ACETAMINOPHEN 650MG ER TAB (TYLENOL ARTHRITIS) PO PRN (21:10)
[2022-09-09] MEDS: LIDOCAINE 5% (LIDODERM) PATCH TD SCH (21:11)
[2022-09-09] MEDS: diphenhydrAMINE CREAM 30GM TOP PRN (21:12)
[2022-09-10 05:13] VITALS: BP 153/70; TEMP 97; O2SAT 96
[2022-09-10] MEDS: LEVOTHYROXINE 50MCG TABLET (0.05MG) PO SCH (06:03)
[2022-09-10] MEDS: SUCRALFATE 1 GM TAB PO SCH ×4 (06:03→23:02)
[2022-09-10] MEDS: HEPARIN SOD (PORCINE) 5000UNITS/ML 1ML VIAL/SYRINGE SQ SCH ×3 (06:04→21:20)
[2022-09-10] MEDS: MIRALAX *UNIT DOSE* 17GM PACKET PO SCH (09:00)
[2022-09-10] MEDS: SENNA 8.6 MG TAB (SENOKOT) PO SCH (09:00)
[2022-09-10] MEDS: ENTRESTO 24-26MG TABLET (SACUBITRIL/VALSARTAN) PO SCH ×2 (09:08→21:20)
[2022-09-10] MEDS: ACETAMINOPHEN 650MG ER TAB (TYLENOL ARTHRITIS) PO SCH (09:08)
[2022-09-10] MEDS: FUROSEMIDE 20 MG TAB PO SCH (09:08)
[2022-09-10] MEDS: MONTELUKAST 10 MG TAB PO SCH (09:09)
[2022-09-10] MEDS: VENLAFAXINE **XR** 75MG CAPSULE PO SCH (09:09)
[2022-09-10] MEDS: CLOPIDOGREL 75 MG TAB PO SCH (09:09)
[2022-09-10] MEDS: METOPROLOL SUCC (TopROL XL) 50MG **XL** TAB PO SCH (09:10)
[2022-09-10] MEDS: CYANOCOBALAMIN 1,000MCG/ML 1ML VIAL IM SCH (09:10)
[2022-09-10] MEDS: ASPIRIN 81MG CHEW TABLET PO SCH (09:10)
[2022-09-10] MEDS: PANTOPRAZOLE 40MG TAB (PROTONIX) PO SCH ×2 (09:10→21:20)
[2022-09-10] MEDS: ATORVASTATIN 20 MG TAB PO SCH (09:10)
[2022-09-10] MEDS: CLOBETASOL PROPIONATE EMOLLIENT 0.05% CR 60 GM TOP SCH ×2 (09:11→21:22)
[2022-09-10] MEDS: FLUTICASONE PROP 0.05% NASAL SPRAY 16 GM (FLONASE) NARES SCH ×2 (09:11→21:21)
[2022-09-10] MEDS: CALCIPOTRIENE CREAM 0.005% 60GM TOP SCH ×2 (09:12→21:21)
[2022-09-10] MEDS: ACETAMINOPHEN 650MG ER TAB (TYLENOL ARTHRITIS) PO PRN (21:19)
[2022-09-10] MEDS: LIDOCAINE 5% (LIDODERM) PATCH TD SCH (21:19)
[2022-09-10] MEDS: NORTRIPTYLINE 10 MG CAP PO PRN (21:20)
[2022-09-11 05:15] VITALS: BP 154/80; TEMP 97; O2SAT 96
[2022-09-11] MEDS: LEVOTHYROXINE 50MCG TABLET (0.05MG) PO SCH (05:27)
[2022-09-11] MEDS: HEPARIN SOD (PORCINE) 5000UNITS/ML 1ML VIAL/SYRINGE SQ SCH ×3 (05:27→20:06)
[2022-09-11] MEDS: SUCRALFATE 1 GM TAB PO SCH ×4 (05:27→23:56)
[2022-09-11] MEDS: MIRALAX *UNIT DOSE* 17GM PACKET PO SCH (09:00)
[2022-09-11] MEDS: ENTRESTO 24-26MG TABLET (SACUBITRIL/VALSARTAN) PO SCH ×2 (10:30→20:02)
[2022-09-11] MEDS: ACETAMINOPHEN 650MG ER TAB (TYLENOL ARTHRITIS) PO SCH (10:32)
[2022-09-11] MEDS: FUROSEMIDE 20 MG TAB PO SCH (10:32)
[2022-09-11] MEDS: VENLAFAXINE **XR** 75MG CAPSULE PO SCH (10:34)
[2022-09-11] MEDS: PANTOPRAZOLE 40MG TAB (PROTONIX) PO SCH ×2 (10:34→20:02)
[2022-09-11] MEDS: SENNA 8.6 MG TAB (SENOKOT) PO SCH (10:34)
[2022-09-11] MEDS: CLOPIDOGREL 75 MG TAB PO SCH (10:35)
[2022-09-11] MEDS: METOPROLOL SUCC (TopROL XL) 50MG **XL** TAB PO SCH (10:35)
[2022-09-11] MEDS: ASPIRIN 81MG CHEW TABLET PO SCH (10:35)
[2022-09-11] MEDS: ATORVASTATIN 20 MG TAB PO SCH (10:35)
[2022-09-11] MEDS: MONTELUKAST 10 MG TAB PO SCH (10:36)
[2022-09-11] MEDS: CYANOCOBALAMIN 1,000MCG/ML 1ML VIAL IM SCH (10:36)
[2022-09-11] MEDS: FLUTICASONE PROP 0.05% NASAL SPRAY 16 GM (FLONASE) NARES SCH ×2 (10:37→20:02)
[2022-09-11] MEDS: CALCIPOTRIENE CREAM 0.005% 60GM TOP SCH ×2 (10:38→20:03)
[2022-09-11] MEDS: CLOBETASOL PROPIONATE EMOLLIENT 0.05% CR 60 GM TOP SCH ×2 (10:38→20:03)
[2022-09-11] MEDS: CYANOCOBALAMIN 500 MCG TAB PO SCH (12:32)
[2022-09-11] MEDS: LIDOCAINE 5% (LIDODERM) PATCH TD SCH (20:02)
[2022-09-11] MEDS: NORTRIPTYLINE 10 MG CAP PO PRN (20:16)
[2022-09-11] MEDS: ACETAMINOPHEN 650MG ER TAB (TYLENOL ARTHRITIS) PO PRN (20:17)
[2022-09-12] MEDS: SUCRALFATE 1 GM TAB PO SCH ×4 (05:57→23:36)
[2022-09-12] MEDS: LEVOTHYROXINE 50MCG TABLET (0.05MG) PO SCH (05:57)
[2022-09-12] MEDS: HEPARIN SOD (PORCINE) 5000UNITS/ML 1ML VIAL/SYRINGE SQ SCH ×3 (05:57→21:12)
[2022-09-12 06:00] VITALS: BP 152/73; TEMP 97.5; O2SAT 98
[2022-09-12] MEDS: CYANOCOBALAMIN 500 MCG TAB PO SCH (08:45)
[2022-09-12] MEDS: ACETAMINOPHEN 650MG ER TAB (TYLENOL ARTHRITIS) PO SCH (08:45)
[2022-09-12] MEDS: METOPROLOL SUCC (TopROL XL) 50MG **XL** TAB PO SCH (08:46)
[2022-09-12] MEDS: ASPIRIN 81MG CHEW TABLET PO SCH (08:47)
[2022-09-12] MEDS: VENLAFAXINE **XR** 75MG CAPSULE PO SCH (08:47)
[2022-09-12] MEDS: FUROSEMIDE 20 MG TAB PO SCH (08:47)
[2022-09-12] MEDS: CLOPIDOGREL 75 MG TAB PO SCH (08:47)
[2022-09-12] MEDS: SENNA 8.6 MG TAB (SENOKOT) PO SCH (08:47)
[2022-09-12] MEDS: PANTOPRAZOLE 40MG TAB (PROTONIX) PO SCH ×2 (08:47→21:12)
[2022-09-12] MEDS: ATORVASTATIN 20 MG TAB PO SCH (08:47)
[2022-09-12] MEDS: MONTELUKAST 10 MG TAB PO SCH (08:47)
[2022-09-12] MEDS: ENTRESTO 24-26MG TABLET (SACUBITRIL/VALSARTAN) PO SCH ×2 (08:47→21:17)
[2022-09-12] MEDS: FLUTICASONE PROP 0.05% NASAL SPRAY 16 GM (FLONASE) NARES SCH ×2 (08:48→21:13)
[2022-09-12] MEDS: CLOBETASOL PROPIONATE EMOLLIENT 0.05% CR 60 GM TOP SCH ×2 (08:48→21:13)
[2022-09-12] MEDS: CALCIPOTRIENE CREAM 0.005% 60GM TOP SCH ×2 (08:48→21:13)
[2022-09-12] MEDS: MIRALAX *UNIT DOSE* 17GM PACKET PO SCH ×2 (08:48→08:52)
[2022-09-12] MEDS: diphenhydrAMINE CREAM 30GM TOP PRN (08:48)
[2022-09-12] MEDS ORDERED: CYANOCOBALAMIN 500 MCG TAB PO SCH (09:00)
[2022-09-12] MEDS: LIDOCAINE 5% (LIDODERM) PATCH TD SCH (21:11)
[2022-09-12] MEDS: ACETAMINOPHEN 650MG ER TAB (TYLENOL ARTHRITIS) PO PRN (21:12)
[2022-09-12] MEDS: NORTRIPTYLINE 10 MG CAP PO PRN (21:12)
[2022-09-13] MEDS: LEVOTHYROXINE 50MCG TABLET (0.05MG) PO SCH (06:05)
[2022-09-13] MEDS: SUCRALFATE 1 GM TAB PO SCH ×2 (06:05→11:09)
[2022-09-13] MEDS: HEPARIN SOD (PORCINE) 5000UNITS/ML 1ML VIAL/SYRINGE SQ SCH ×2 (06:05→14:00)
[2022-09-13 06:11] VITALS: BP 146/80; TEMP 97.5; O2SAT 93
[2022-09-13] MEDS: MIRALAX *UNIT DOSE* 17GM PACKET PO SCH (09:00)
[2022-09-13] MEDS: SENNA 8.6 MG TAB (SENOKOT) PO SCH (09:00)
[2022-09-13] MEDS ORDERED: PANT40TA29 PO (11:01)
[2022-09-13] MEDS ORDERED: SUCR1TA PO (11:01)
[2022-09-13] MEDS: CYANOCOBALAMIN 500 MCG TAB PO SCH (11:08)
[2022-09-13] MEDS: VENLAFAXINE **XR** 75MG CAPSULE PO SCH (11:09)
[2022-09-13] MEDS: ACETAMINOPHEN 650MG ER TAB (TYLENOL ARTHRITIS) PO SCH (11:09)
[2022-09-13] MEDS: ATORVASTATIN 20 MG TAB PO SCH (11:09)
[2022-09-13] MEDS: ENTRESTO 24-26MG TABLET (SACUBITRIL/VALSARTAN) PO SCH (11:09)
[2022-09-13] MEDS: ASPIRIN 81MG CHEW TABLET PO SCH (11:09)
[2022-09-13] MEDS: CLOPIDOGREL 75 MG TAB PO SCH (11:09)
[2022-09-13] MEDS: MONTELUKAST 10 MG TAB PO SCH (11:09)
[2022-09-13] MEDS: PANTOPRAZOLE 40MG TAB (PROTONIX) PO SCH (11:10)
[2022-09-13] MEDS: FUROSEMIDE 20 MG TAB PO SCH (11:10)
[2022-09-13 11:11] VITALS: BP 146/80
[2022-09-13] MEDS: FLUTICASONE PROP 0.05% NASAL SPRAY 16 GM (FLONASE) NARES SCH (11:11)
[2022-09-13] MEDS: METOPROLOL SUCC (TopROL XL) 50MG **XL** TAB PO SCH (11:11)
[2022-09-13] MEDS: CLOBETASOL PROPIONATE EMOLLIENT 0.05% CR 60 GM TOP SCH (11:12)
[2022-09-13] MEDS: CALCIPOTRIENE CREAM 0.005% 60GM TOP SCH (11:12)
== END 2022-09-13 14:31 | disposition home or self-care (01) ==
LOC: M ED 12:55 → M ED INP 12:56 → M MSPAV 18:42
PROVIDERS: ADMIT Internal Medicine; ATTEND Internal Medicine
DX: R55 Syncope and collapse (principal); D62 Acute posthemorrhagic anemia; R78.81 Bacteremia; B95.7 Other staphylococcus as the cause of diseases classified elsewhere; E87.20 Acidosis, unspecified; I77.810 Thoracic aortic ectasia; I34.2 Nonrheumatic mitral (valve) stenosis; I10 Essential (primary) hypertension; G47.00 Insomnia, unspecified; E03.9 Hypothyroidism, unspecified; M54.9 Dorsalgia, unspecified; G89.29 Other chronic pain; M19.011 Primary osteoarthritis, right shoulder; M19.012 Primary osteoarthritis, left shoulder; L40.9 Psoriasis, unspecified; R60.0 Localized edema; R26.2 Difficulty in walking, not elsewhere classified; I69.354 Hemiplegia and hemiparesis following cerebral infarction affecting left non-dominant side; F39 Unspecified mood [affective] disorder; Z95.810 Presence of automatic (implantable) cardiac defibrillator; Z95.828 Presence of other vascular implants and grafts; Z98.1 Arthrodesis status; Z88.2 Allergy status to sulfonamides; Z91.018 Allergy to other foods; Z79.899 Other long term (current) drug therapy; Z79.82 Long term (current) use of aspirin; Z79.02 Long term (current) use of antithrombotics/antiplatelets; Z79.890 Hormone replacement therapy
CPT/HCPCS: 36415; 70450; 70551; 71045; 80048; 80053; 80061; 80076; 81001; 82140; 82270; 82607; 82728; 82746; 82803; 83550; 83605; 83735; 83930; 84100; 84443; 85014; 85018; 85025; 85027; 86850; 86900; 86901; 86920; 87040; 87077; 87088; 87186; 87338; 87486; 87581; 87633; 87798; 93005; 93041; 93306; 93880; 94760; 96360; 96361; 96372; 96374; 96376; 97116; 97161; 97165; 97530; 97535; 99285; C9113; G0378; J3420; P9016

== ENCOUNTER 2022-09-20 15:31 | Emergency (ER) | payer MEDICARE ==
[~2022-09-20] VITALS: Ht 162.6 cm; Wt 77.3 kg
[~2022-09-20 15:31] MED LIST changes: +MECL-136 PO; +PANT40TA29 PO; +SUCR1TA PO
[2022-09-20 15:46] VITALS: TEMP 97.6
[2022-09-20] MEDS ORDERED: ISOVUE-370 76% 100ML VIAL As Ordered ONE (16:20)
[2022-09-20 16:25] LABS: BASO # 0.1 10^3/uL (0.0-0.2); BASO % 1.3 % (0.0-1.0); EOS # 0.4 10^3/uL (0.0-0.5); EOS % 5.1 % (0.0-3.0); HEMOGLOBIN 10.6 g/dl (12.0-15.5); LYMPH # 1.8 10^3/uL (1.5-5.0); LYMPH % 22.2 % (24.0-44.0); MEAN CORPUSCULAR HEMOGLOBIN 29.3 pg (27.0-33.0); MEAN CORPUSCULAR HGB CONC 33.1 g/dl (32.0-36.5); MEAN CORPUSCULAR VOLUME 88.4 fl (80.0-96.0); MONO # 0.7 10^3/uL (0.0-0.8); MONO % 8.6 % (2.0-8.0); NEUTROPHILS % 62.5 % (36.0-66.0); PLATELET COUNT, AUTOMATED 327 10^3/uL (150-450); RED BLOOD COUNT 3.62 10^6/uL (4.00-5.40); WHITE BLOOD COUNT 7.9 10^3/uL (4.0-10.0)
[2022-09-20 16:39] LABS: INR 0.96
[2022-09-20 16:40] LABS: PARTIAL THROMBOPLASTIN TIME 27.3 SECONDS (24.8-34.2)
[2022-09-20 16:56] LABS: CPK CREATINE PHOSPHOKINASE 35 U/L (34-145)
[2022-09-20 16:57] LABS: BLOOD UREA NITROGEN 22 MG/DL (9-23); CALCIUM LEVEL 9.2 MG/DL (8.3-10.6); CARBON DIOXIDE LEVEL 24 MMOL/L (20-31); CHLORIDE LEVEL 101 MMOL/L (98-107); CK-MB VALUE MASS < 1.0 NG/ML (<3.6); CREATININE FOR GFR 0.85 MG/DL (0.55-1.30); GLOMERULAR FILTRATION RATE > 60.0 (>32); GLUCOSE, FASTING 97 MG/DL (74-106); MB/CK RELATIVE INDEX 2.85 (< OR =4); POTASSIUM SERUM 3.9 MMOL/L (3.5-5.1); SODIUM LEVEL 135 MMOL/L (136-145)
[2022-09-20 17:00] LABS: RSV AMPLIFICATION NEGATIVE (NEGATIVE)
[2022-09-20 17:34] LABS: CK-MB VALUE MASS < 1.0 NG/ML (<3.6)
[2022-09-20 17:35] LABS: CPK CREATINE PHOSPHOKINASE 34 U/L (34-145); MB/CK RELATIVE INDEX 2.94 (< OR =4)
[2022-09-20] MEDS ORDERED: ACETAMINOPHEN TAB 650MG DOSE (2X325MG) PO ONE (17:40)
[2022-09-20 21:22] VITALS: BP 121/57; O2SAT 96
== END 2022-09-20 21:30 | disposition short-term general hospital (02) ==
LOC: M ED 15:31
DX: S09.90XA Unspecified injury of head, initial encounter (principal); R55 Syncope and collapse; W01.198A Fall on same level from slipping, tripping and stumbling with subsequent striking against other object, initial encounter; Y92.098 Other place in other non-institutional residence as the place of occurrence of the external cause; R47.81 Slurred speech; I44.4 Left anterior fascicular block; R94.31 Abnormal electrocardiogram [ECG] [EKG]; I69.354 Hemiplegia and hemiparesis following cerebral infarction affecting left non-dominant side; I10 Essential (primary) hypertension; E78.00 Pure hypercholesterolemia, unspecified; E03.9 Hypothyroidism, unspecified; F41.9 Anxiety disorder, unspecified; F32.A Depression, unspecified; Z79.899 Other long term (current) drug therapy; Z79.02 Long term (current) use of antithrombotics/antiplatelets; Z79.890 Hormone replacement therapy; Z79.82 Long term (current) use of aspirin; Z88.2 Allergy status to sulfonamides; Z91.018 Allergy to other foods
CPT/HCPCS: 70450; 70496; 70498; 71045; 72125; 80047; 80048; 82550; 82553; 84484; 85025; 85610; 85730; 87631; 93005; 93041; 94760; 99285; Q9967

== ENCOUNTER → 2022-10-18 | Outpatient (REF) | payer MEDICARE ==
[2022-10-18 17:19] LABS: HEMATOCRIT 37.7 % (36.0-47.0); HEMOGLOBIN 12.5 g/dl (12.0-15.5); MEAN CORPUSCULAR HEMOGLOBIN 28.9 pg (27.0-33.0); MEAN CORPUSCULAR HGB CONC 33.2 g/dl (32.0-36.5); MEAN CORPUSCULAR VOLUME 87.1 fl (80.0-96.0); PLATELET COUNT, AUTOMATED 312 10^3/uL (150-450); RED BLOOD COUNT 4.33 10^6/uL (4.00-5.40); WHITE BLOOD COUNT 6.8 10^3/uL (4.0-10.0)
[2022-10-18 17:53] LABS: IRON (FE) 40 UG/DL (50-170)
[2022-10-18 17:54] LABS: ALBUMIN 3.6 G/DL (3.2-5.2); ALKALINE PHOSPHATASE 171 U/L (46-116); ALT/SGPT 12 U/L (7.0-40); AST/SGOT 12 U/L (<34); BILIRUBIN,TOTAL 0.4 MG/DL (0.3-1.2); BLOOD UREA NITROGEN 16 MG/DL (9-23); CALCIUM LEVEL 8.9 MG/DL (8.3-10.6); CARBON DIOXIDE LEVEL 20 MMOL/L (20-31); CHLORIDE LEVEL 101 MMOL/L (98-107); CREATININE FOR GFR 0.77 MG/DL (0.55-1.30); GLOMERULAR FILTRATION RATE > 60.0 (>32); GLUCOSE, FASTING 103 MG/DL (74-106); SODIUM LEVEL 132 MMOL/L (136-145); TOTAL PROTEIN 6.4 G/DL (5.7-8.2)
== END ==
LOC: M SFHCCLAY 13:59
PROVIDERS: ATTEND Family Medicine
DX: D64.9 Anemia, unspecified (principal); E87.1 Hypo-osmolality and hyponatremia

== ENCOUNTER → 2022-12-19 | Outpatient (CLI) | payer MEDICARE | LOC: M CLY 14:44 | PROVIDERS: ATTEND Family Medicine | DX: M54.50 Low back pain, unspecified (principal); M47.814 Spondylosis without myelopathy or radiculopathy, thoracic region; Z98.890 Other specified postprocedural states ==

== ENCOUNTER → 2023-06-23 | Outpatient (REF) | payer MEDICARE ==
[2023-06-23 18:10] LABS: HEMATOCRIT 41.5 % (36.0-47.0); HEMOGLOBIN 13.8 g/dl (12.0-15.5); MEAN CORPUSCULAR HEMOGLOBIN 30.4 pg (27.0-33.0); MEAN CORPUSCULAR HGB CONC 33.3 g/dl (32.0-36.5); MEAN CORPUSCULAR VOLUME 91.4 fl (80.0-96.0); PLATELET COUNT, AUTOMATED 274 10^3/uL (150-450); RED BLOOD COUNT 4.54 10^6/uL (4.00-5.40); WHITE BLOOD COUNT 6.9 10^3/uL (4.0-10.0)
[2023-06-23 18:31] LABS: THYROID STIMULATING HORMONE 2.606 uIU/ML (0.55-4.78)
[2023-06-23 18:32] LABS: HEMOGLOBIN A1c 5.6 % (4.0-6.0)
[2023-06-23 18:33] LABS: ALBUMIN 3.8 G/DL (3.2-5.2); ALKALINE PHOSPHATASE 134 U/L (46-116); ALT/SGPT 20 U/L (7.0-40); AST/SGOT 17 U/L (<34); BILIRUBIN,TOTAL 0.3 MG/DL (0.3-1.2); BLOOD UREA NITROGEN 27 MG/DL (9-23); CALCIUM LEVEL 9.5 MG/DL (8.3-10.6); CARBON DIOXIDE LEVEL 23 MMOL/L (20-31); CHLORIDE LEVEL 107 MMOL/L (98-107); CREATININE FOR GFR 0.87 MG/DL (0.55-1.30); GLOMERULAR FILTRATION RATE > 60.0 (>32); GLUCOSE, FASTING 94 MG/DL (74-106); IRON (FE) 76 UG/DL (50-170); POTASSIUM SERUM 4.9 MMOL/L (3.5-5.1); SODIUM LEVEL 136 MMOL/L (136-145); TOTAL PROTEIN 6.7 G/DL (5.7-8.2)
== END ==
LOC: M SFHCCLAY 14:11
PROVIDERS: ATTEND Family Medicine
DX: D64.9 Anemia, unspecified (principal); I10 Essential (primary) hypertension; E87.1 Hypo-osmolality and hyponatremia; E03.9 Hypothyroidism, unspecified; R73.01 Impaired fasting glucose

== ENCOUNTER → 2023-12-12 | Outpatient (CLI) | payer MEDICARE, MEDICAID | LOC: M RAD 11:44 | PROVIDERS: ATTEND Family Medicine | DX: M79.89 Other specified soft tissue disorders (principal) ==

== ENCOUNTER → 2024-01-07 | Outpatient (CLI) | payer MEDICARE, MEDICAID ==
[~2024-01-07] MED LIST changes: +PROHANCE 279.3MG/ML 15ML VIAL As Ordered ONE
== END ==
LOC: M RAD 15:02
PROVIDERS: ATTEND Family Medicine
DX: M79.89 Other specified soft tissue disorders (principal); R93.89 Abnormal findings on diagnostic imaging of other specified body structures
CPT/HCPCS: 73220; A9576

== ENCOUNTER → 2024-02-19 | Outpatient (REF) | payer MEDICARE, MEDICAID ==
[~2024-02-19] MED LIST changes: -PROHANCE 279.3MG/ML 15ML VIAL As Ordered ONE
== END ==
LOC: M SFHCCLAY 16:15
PROVIDERS: ATTEND Family Medicine
DX: I10 Essential (primary) hypertension (principal); D64.9 Anemia, unspecified; E03.9 Hypothyroidism, unspecified; R73.01 Impaired fasting glucose; E78.2 Mixed hyperlipidemia

== ENCOUNTER 2024-04-06 08:12 | Inpatient (IN) | payer MEDICARE, MEDICAID ==
[~2024-04-06] VITALS: Ht 175.3 cm; Wt 74.9 kg
[2024-04-06] VITALS (15 sets, daily range): BP systolic 81–144; BP diastolic 49–88; TEMP 97.3–98.2; O2SAT 92–98
[2024-04-06] MEDS ORDERED: DICL50TAB PO (08:39)
[2024-04-06] MEDS ORDERED: CETI-24 PO (08:39)
[2024-04-06 10:06] LABS: BASO # 0.1 10^3/uL (0.0-0.2); BASO % 0.8 % (0.0-1.0); EOS # 0.3 10^3/uL (0.0-0.5); EOS % 4.1 % (0.0-3.0); HEMATOCRIT 33.7 % (36.0-47.0); HEMOGLOBIN 11.5 g/dl (12.0-15.5); LYMPH # 2.1 10^3/uL (1.5-5.0); LYMPH % 32.4 % (24.0-44.0); MEAN CORPUSCULAR HEMOGLOBIN 31.1 pg (27.0-33.0); MEAN CORPUSCULAR HGB CONC 34.1 g/dl (32.0-36.5); MEAN CORPUSCULAR VOLUME 91.1 fl (80.0-96.0); MONO # 0.4 10^3/uL (0.0-0.8); NEUTROPHILS # 3.7 10^3/uL (1.5-8.5); NEUTROPHILS % 56.5 % (36.0-66.0); PLATELET COUNT, AUTOMATED 280 10^3/uL (150-450); WHITE BLOOD COUNT 6.5 10^3/uL (4.0-10.0)
[2024-04-06 10:35] LABS: LIPASE 24 U/L (12-53)
[2024-04-06 10:38] LABS: ALBUMIN 3.1 G/DL (3.2-5.2); ALKALINE PHOSPHATASE 174 U/L (35-104); ALT/SGPT 70 U/L (7.0-40); AST/SGOT 19 U/L (<34); BILIRUBIN,DIRECT < 0.1 MG/DL (<0.4); BILIRUBIN,TOTAL 0.3 MG/DL (0.3-1.2); BLOOD UREA NITROGEN 20 MG/DL (9-23); CALCIUM LEVEL 8.8 MG/DL (8.3-10.6); CARBON DIOXIDE LEVEL 26 MMOL/L (20-31); CHLORIDE LEVEL 103 MMOL/L (98-107); CREATININE FOR GFR 0.74 MG/DL (0.55-1.30); GLOMERULAR FILTRATION RATE > 60.0 (>32); GLUCOSE, FASTING 89 MG/DL (74-106); POTASSIUM SERUM 4.1 MMOL/L (3.5-5.1); SODIUM LEVEL 137 MMOL/L (136-145); TOTAL PROTEIN 5.9 G/DL (5.7-8.2)
[2024-04-06] MEDS ORDERED: ISOVUE-370 76% 100ML VIAL As Ordered ONE (11:13)
[2024-04-06] MEDS ORDERED: HOME MED LIST COMPLETE! XX SCH (16:30)
[2024-04-06] MEDS ORDERED: ALEN35TA56 PO (16:30)
[2024-04-06 16:56] LABS: HEMATOCRIT 35.7 % (36.0-47.0); MEAN CORPUSCULAR HEMOGLOBIN 30.8 pg (27.0-33.0); MEAN CORPUSCULAR HGB CONC 33.6 g/dl (32.0-36.5); MEAN CORPUSCULAR VOLUME 91.5 fl (80.0-96.0); PLATELET COUNT, AUTOMATED 285 10^3/uL (150-450); WHITE BLOOD COUNT 7.1 10^3/uL (4.0-10.0)
[2024-04-06] MEDS: SUCRALFATE SUSP 1GM/10ML UD PO SCH (18:42)
[2024-04-06] MEDS: PANTOPRAZOLE 40MG VIAL IV SCH (18:42)
[2024-04-06] MEDS: NS (Normal Saline) 0.9% 1,000 ML IV ONE (21:38)
[2024-04-06 22:01] LABS: HEMATOCRIT 30.1 % (36.0-47.0)
[2024-04-07] VITALS (13 sets, daily range): BP systolic 96–160; BP diastolic 56–82; TEMP 97.2–98.3; O2SAT 93–98
[2024-04-07 06:21] LABS: HEMATOCRIT 32.7 % (36.0-47.0); HEMOGLOBIN 11.2 g/dl (12.0-15.5)
[2024-04-07 06:23] LABS: BASO # 0.1 10^3/uL (0.0-0.2); EOS # 0.2 10^3/uL (0.0-0.5); EOS % 3.1 % (0.0-3.0); HEMATOCRIT 32.9 % (36.0-47.0); HEMOGLOBIN 11.2 g/dl (12.0-15.5); LYMPH # 1.9 10^3/uL (1.5-5.0); LYMPH % 36.6 % (24.0-44.0); MEAN CORPUSCULAR HEMOGLOBIN 29.9 pg (27.0-33.0); MONO # 0.4 10^3/uL (0.0-0.8); MONO % 7.7 % (2.0-8.0); NEUTROPHILS # 2.7 10^3/uL (1.5-8.5); NEUTROPHILS % 51.2 % (36.0-66.0); PLATELET COUNT, AUTOMATED 230 10^3/uL (150-450); RED BLOOD COUNT 3.74 10^6/uL (4.00-5.40); WHITE BLOOD COUNT 5.2 10^3/uL (4.0-10.0)
[2024-04-07 06:41] LABS: BLOOD UREA NITROGEN 20 MG/DL (9-23); CARBON DIOXIDE LEVEL 22 MMOL/L (20-31); CHLORIDE LEVEL 106 MMOL/L (98-107); CREATININE FOR GFR 0.72 MG/DL (0.55-1.30); GLOMERULAR FILTRATION RATE > 60.0 (>32); GLUCOSE, FASTING 116 MG/DL (74-106); SODIUM LEVEL 137 MMOL/L (136-145)
[2024-04-07] MEDS: OCTREOTIDE ACETATE 100MCG/ML VIAL **IV ADMINISTRATION ONLY IV SCH (13:11)
[2024-04-07 17:17] LABS: HEMATOCRIT 31.5 % (36.0-47.0); HEMOGLOBIN 10.7 g/dl (12.0-15.5)
[2024-04-07 23:13] LABS: HEMOGLOBIN 10.6 g/dl (12.0-15.5)
[2024-04-08] VITALS (9 sets, daily range): BP systolic 132–159; BP diastolic 69–96; TEMP 97.5–99.3; O2SAT 92–97
[2024-04-08 06:16] LABS: BASO # 0.1 10^3/uL (0.0-0.2); EOS # 0.3 10^3/uL (0.0-0.5); EOS % 5.4 % (0.0-3.0); HEMATOCRIT 33.5 % (36.0-47.0); HEMOGLOBIN 11.3 g/dl (12.0-15.5); LYMPH # 1.5 10^3/uL (1.5-5.0); LYMPH % 25.4 % (24.0-44.0); MEAN CORPUSCULAR HEMOGLOBIN 29.9 pg (27.0-33.0); MEAN CORPUSCULAR HGB CONC 33.7 g/dl (32.0-36.5); MEAN CORPUSCULAR VOLUME 88.6 fl (80.0-96.0); MONO # 0.4 10^3/uL (0.0-0.8); MONO % 7.4 % (2.0-8.0); NEUTROPHILS # 3.6 10^3/uL (1.5-8.5); NEUTROPHILS % 60.6 % (36.0-66.0); PLATELET COUNT, AUTOMATED 253 10^3/uL (150-450); RED BLOOD COUNT 3.78 10^6/uL (4.00-5.40); WHITE BLOOD COUNT 5.9 10^3/uL (4.0-10.0)
[2024-04-08 06:35] LABS: BLOOD UREA NITROGEN 11 MG/DL (9-23); CALCIUM LEVEL 8.7 MG/DL (8.3-10.6); CARBON DIOXIDE LEVEL 22 MMOL/L (20-31); CHLORIDE LEVEL 106 MMOL/L (98-107); CREATININE FOR GFR 0.69 MG/DL (0.55-1.30); GLOMERULAR FILTRATION RATE > 60.0 (>32); GLUCOSE, FASTING 163 MG/DL (74-106); POTASSIUM SERUM 4.4 MMOL/L (3.5-5.1); SODIUM LEVEL 138 MMOL/L (136-145)
[2024-04-08] MEDS: LORATADINE 10 MG TAB PO SCH (11:46)
[2024-04-08] MEDS: ACETAMINOPHEN 325 MG TAB PO PRN (11:47)
[2024-04-08] MEDS: FUROSEMIDE 40MG/4ML VIAL IV ONE (15:45)
[2024-04-08] MEDS: ASPIRIN 81MG ENTERIC TABLET PO SCH (15:45)
[2024-04-08 16:20] LABS: HEMATOCRIT 34.7 % (36.0-47.0); HEMOGLOBIN 11.4 g/dl (12.0-15.5)
[2024-04-08] MEDS: FLUTICASONE PROP 0.05% NASAL SPRAY 16 GM (FLONASE) NARES SCH (20:16)
[2024-04-08] MEDS: ONDANSETRON 4MG ORAL DISINTEGRATING TAB PO PRN (23:49)
[2024-04-09] VITALS (8 sets, daily range): BP systolic 108–152; BP diastolic 61–95; TEMP 96.4–99.3; O2SAT 95–97
[2024-04-09] MEDS: LEVOTHYROXINE 50MCG TABLET (0.05MG) PO SCH (05:16)
[2024-04-09 06:47] LABS: BASO # 0.1 10^3/uL (0.0-0.2); BASO % 0.6 % (0.0-1.0); EOS # 0.3 10^3/uL (0.0-0.5); HEMATOCRIT 36.6 % (36.0-47.0); HEMOGLOBIN 12.2 g/dl (12.0-15.5); LYMPH # 2.2 10^3/uL (1.5-5.0); LYMPH % 27.9 % (24.0-44.0); MEAN CORPUSCULAR HEMOGLOBIN 29.4 pg (27.0-33.0); MEAN CORPUSCULAR HGB CONC 33.3 g/dl (32.0-36.5); MEAN CORPUSCULAR VOLUME 88.2 fl (80.0-96.0); MONO # 0.6 10^3/uL (0.0-0.8); MONO % 7.9 % (2.0-8.0); NEUTROPHILS # 4.6 10^3/uL (1.5-8.5); PLATELET COUNT, AUTOMATED 285 10^3/uL (150-450); RED BLOOD COUNT 4.15 10^6/uL (4.00-5.40); WHITE BLOOD COUNT 7.8 10^3/uL (4.0-10.0)
[2024-04-09 06:55] LABS: BLOOD UREA NITROGEN 12 MG/DL (9-23); CALCIUM LEVEL 8.6 MG/DL (8.3-10.6); CARBON DIOXIDE LEVEL 26 MMOL/L (20-31); CHLORIDE LEVEL 104 MMOL/L (98-107); CREATININE FOR GFR 0.73 MG/DL (0.55-1.30); GLOMERULAR FILTRATION RATE > 60.0 (>32); GLUCOSE, FASTING 144 MG/DL (74-106); POTASSIUM SERUM 3.6 MMOL/L (3.5-5.1); SODIUM LEVEL 139 MMOL/L (136-145)
[2024-04-09] MEDS: MIRALAX *UNIT DOSE* 17GM PACKET PO SCH (09:00)
[2024-04-09] MEDS: VENLAFAXINE **XR** 75MG CAPSULE PO SCH (09:02)
[2024-04-09] MEDS: CETIRIZINE (ZyrTEC) 10 MG TAB PO SCH (09:03)
[2024-04-09] MEDS: METOPROLOL SUCC (TopROL XL) 50MG **XL** TAB PO SCH (09:03)
[2024-04-09] MEDS: ATORVASTATIN 20 MG TAB PO SCH (09:03)
[2024-04-09] MEDS: MONTELUKAST 10 MG TAB PO SCH (09:03)
[2024-04-09] MEDS: DOCUSATE SODIUM 100MG CAPSULE PO SCH (09:03)
[2024-04-10] VITALS: BP 140/77; TEMP 98; O2SAT 96
[2024-04-10 03:43] VITALS: BP 111/59; TEMP 97; O2SAT 96
[2024-04-10 06:45] LABS: BLOOD UREA NITROGEN 16 MG/DL (9-23); CALCIUM LEVEL 8.3 MG/DL (8.3-10.6); CARBON DIOXIDE LEVEL 26 MMOL/L (20-31); CHLORIDE LEVEL 101 MMOL/L (98-107); CREATININE FOR GFR 0.75 MG/DL (0.55-1.30); GLOMERULAR FILTRATION RATE > 60.0 (>32); GLUCOSE, FASTING 111 MG/DL (74-106); SODIUM LEVEL 136 MMOL/L (136-145)
[2024-04-10 07:12] LABS: BASO # 0.1 10^3/uL (0.0-0.2); BASO % 0.9 % (0.0-1.0); EOS # 0.4 10^3/uL (0.0-0.5); HEMATOCRIT 30.8 % (36.0-47.0); LYMPH # 1.8 10^3/uL (1.5-5.0); LYMPH % 31.3 % (24.0-44.0); MEAN CORPUSCULAR HEMOGLOBIN 29.4 pg (27.0-33.0); MEAN CORPUSCULAR HGB CONC 33.1 g/dl (32.0-36.5); MEAN CORPUSCULAR VOLUME 88.8 fl (80.0-96.0); MONO # 0.5 10^3/uL (0.0-0.8); MONO % 8.8 % (2.0-8.0); NEUTROPHILS # 2.9 10^3/uL (1.5-8.5); NEUTROPHILS % 51.6 % (36.0-66.0); PLATELET COUNT, AUTOMATED 264 10^3/uL (150-450); RED BLOOD COUNT 3.47 10^6/uL (4.00-5.40); WHITE BLOOD COUNT 5.6 10^3/uL (4.0-10.0)
[2024-04-10 07:13] LABS: HEMOGLOBIN 10.2 g/dl (12.0-15.5)
[2024-04-10 08:00] VITALS: BP 141/66; TEMP 97.5; O2SAT 94
[2024-04-10 12:00] VITALS: BP 129/68; TEMP 97.5; O2SAT 98
[2024-04-10 16:00] VITALS: BP 130/80; TEMP 98.2; O2SAT 97
[2024-04-10 20:35] VITALS: BP 125/70; TEMP 97.9; O2SAT 96
[2024-04-10] MEDS: NORTRIPTYLINE 10 MG CAP PO PRN (23:55)
[2024-04-11] VITALS: BP 127/71; TEMP 97.9; O2SAT 98
[2024-04-11 05:09] VITALS: BP 132/78; TEMP 97.9; O2SAT 95
[2024-04-11 06:39] LABS: BASO # 0.1 10^3/uL (0.0-0.2); BASO % 1.1 % (0.0-1.0); EOS # 0.5 10^3/uL (0.0-0.5); EOS % 8.6 % (0.0-3.0); HEMATOCRIT 30.8 % (36.0-47.0); HEMOGLOBIN 10.1 g/dl (12.0-15.5); LYMPH # 1.8 10^3/uL (1.5-5.0); LYMPH % 33.7 % (24.0-44.0); MEAN CORPUSCULAR HEMOGLOBIN 29.9 pg (27.0-33.0); MEAN CORPUSCULAR HGB CONC 32.8 g/dl (32.0-36.5); MEAN CORPUSCULAR VOLUME 91.1 fl (80.0-96.0); MONO # 0.5 10^3/uL (0.0-0.8); MONO % 9.7 % (2.0-8.0); NEUTROPHILS # 2.5 10^3/uL (1.5-8.5); NEUTROPHILS % 46.5 % (36.0-66.0); RED BLOOD COUNT 3.38 10^6/uL (4.00-5.40); WHITE BLOOD COUNT 5.3 10^3/uL (4.0-10.0)
[2024-04-11 06:58] LABS: BLOOD UREA NITROGEN 12 MG/DL (9-23); CALCIUM LEVEL 8.1 MG/DL (8.3-10.6); CARBON DIOXIDE LEVEL 27 MMOL/L (20-31); CHLORIDE LEVEL 103 MMOL/L (98-107); CREATININE FOR GFR 0.72 MG/DL (0.55-1.30); GLOMERULAR FILTRATION RATE > 60.0 (>32); GLUCOSE, FASTING 107 MG/DL (74-106); SODIUM LEVEL 136 MMOL/L (136-145)
[2024-04-11 07:12] LABS: PLATELET COUNT, AUTOMATED 263 10^3/uL (150-450)
[2024-04-11 08:00] VITALS: BP 153/79; TEMP 97.3; O2SAT 95
[2024-04-11 12:00] VITALS: BP 140/94; TEMP 97.5; O2SAT 98
[2024-04-11] MEDS ORDERED: DOCUSATE SODIUM 100MG CAPSULE PO PRN (12:40)
[2024-04-11 16:00] VITALS: BP 133/73; TEMP 97.5; O2SAT 99
[2024-04-11] MEDS: SUCRALFATE 1 GM TAB PO SCH (20:20)
[2024-04-11] MEDS: PANTOPRAZOLE 40MG TAB (PROTONIX) PO SCH (20:20)
[2024-04-11] MEDS: RAMELTEON 8 MG TAB (ROZEREM) PO PRN (21:12)
[2024-04-11 21:49] VITALS: BP 132/68; TEMP 97.7; O2SAT 98
[2024-04-12 04:17] VITALS: BP 144/76; TEMP 97.5; O2SAT 98
[2024-04-12 05:22] LABS: BASO # 0.1 10^3/uL (0.0-0.2); BASO % 0.9 % (0.0-1.0); EOS # 0.6 10^3/uL (0.0-0.5); EOS % 9.8 % (0.0-3.0); HEMATOCRIT 29.1 % (36.0-47.0); HEMOGLOBIN 9.6 g/dl (12.0-15.5); LYMPH # 1.8 10^3/uL (1.5-5.0); LYMPH % 30.7 % (24.0-44.0); MEAN CORPUSCULAR HEMOGLOBIN 29.4 pg (27.0-33.0); MEAN CORPUSCULAR VOLUME 89.3 fl (80.0-96.0); MONO # 0.5 10^3/uL (0.0-0.8); MONO % 8.9 % (2.0-8.0); NEUTROPHILS # 2.8 10^3/uL (1.5-8.5); NEUTROPHILS % 49.4 % (36.0-66.0); PLATELET COUNT, AUTOMATED 278 10^3/uL (150-450); RED BLOOD COUNT 3.26 10^6/uL (4.00-5.40); WHITE BLOOD COUNT 5.7 10^3/uL (4.0-10.0)
[2024-04-12 05:44] LABS: BLOOD UREA NITROGEN 12 MG/DL (9-23); CALCIUM LEVEL 8.8 MG/DL (8.3-10.6); CARBON DIOXIDE LEVEL 27 MMOL/L (20-31); CHLORIDE LEVEL 104 MMOL/L (98-107); CREATININE FOR GFR 0.64 MG/DL (0.55-1.30); GLOMERULAR FILTRATION RATE > 60.0 (>32); GLUCOSE, FASTING 117 MG/DL (74-106); POTASSIUM SERUM 4.1 MMOL/L (3.5-5.1); SODIUM LEVEL 137 MMOL/L (136-145)
[2024-04-12 08:00] VITALS: BP 116/46; TEMP 97.5; O2SAT 98
[2024-04-12 08:11] VITALS: BP 116/46
[2024-04-12] MEDS ORDERED: PANT40TA29 PO (10:39)
[2024-04-12] MEDS ORDERED: COLA100C5 PO (10:39)
[2024-04-12] MEDS ORDERED: SUCR1TA PO (10:39)
[2024-04-12] MEDS ORDERED: LISI10TA22 PO (10:39)
[2024-04-12 12:00] VITALS: BP 132/69; TEMP 97.3; O2SAT 99
== END 2024-04-12 14:19 | disposition home or self-care (01) | DRG 378 ==
LOC: M ED 08:12 → M ED INP 15:37 → M MSPAV 18:26
PROVIDERS: ADMIT Internal Medicine Nephrology; ATTEND Internal Medicine Nephrology
PROC: 30233N1 Transfusion of Nonautologous Red Blood Cells into Peripheral Vein, Percutaneous Approach (ICD-10-PCS; principal; 2024-04-06)
DX: K57.31 Diverticulosis of large intestine without perforation or abscess with bleeding (principal); I69.354 Hemiplegia and hemiparesis following cerebral infarction affecting left non-dominant side; D62 Acute posthemorrhagic anemia; I10 Essential (primary) hypertension; E78.5 Hyperlipidemia, unspecified; Z88.2 Allergy status to sulfonamides; R33.9 Retention of urine, unspecified; K59.00 Constipation, unspecified; I69.322 Dysarthria following cerebral infarction; F32.A Depression, unspecified; E03.9 Hypothyroidism, unspecified; K52.9 Noninfective gastroenteritis and colitis, unspecified; M15.9 Polyosteoarthritis, unspecified; Z85.42 Personal history of malignant neoplasm of other parts of uterus; Z90.710 Acquired absence of both cervix and uterus; Z98.1 Arthrodesis status; Z98.41 Cataract extraction status, right eye; Z98.42 Cataract extraction status, left eye; Z79.82 Long term (current) use of aspirin; Z79.899 Other long term (current) drug therapy; Z79.02 Long term (current) use of antithrombotics/antiplatelets; Z91.018 Allergy to other foods

== ENCOUNTER → 2024-12-28 | Outpatient (REF) | payer MEDICARE, MEDICAID ==
[~2024-12-28] MED LIST changes: +ALEN35TA56 PO; +CETI-24 PO; +COLA100C5 PO; +DICL50TAB PO; +LIDO1ADH93 TD; -LIDO5DIS41 TD; +LISI10TA22 PO
[2024-12-28 18:12] LABS: PLATELET COUNT, AUTOMATED 285 10^3/uL (150-450)
[2024-12-28 18:38] LABS: ALT/SGPT 18.0 U/L (7.0-40); AST/SGOT 22.0 U/L (<34); CALCIUM LEVEL 8.9 MG/DL (8.3-10.6); CARBON DIOXIDE LEVEL 28.0 MMOL/L (20-31); CHLORIDE LEVEL 99.0 MMOL/L (98-107); CREATININE FOR GFR 0.85 MG/DL (0.55-1.30); GLOMERULAR FILTRATION RATE 68.4 (>32); POTASSIUM SERUM 4.5 MMOL/L (3.5-5.1); SODIUM LEVEL 134.0 MMOL/L (136-145)
[2024-12-28 18:40] LABS: FREE T4 1.13 NG/DL (0.89-1.76); TOTAL T3 98.3 NG/DL (60.0-181.0)
== END ==
LOC: M SFHCCLAY 14:44
PROVIDERS: ATTEND Family Medicine
DX: D64.9 Anemia, unspecified (principal); I10 Essential (primary) hypertension; E87.1 Hypo-osmolality and hyponatremia; E03.9 Hypothyroidism, unspecified

== ENCOUNTER → 2024-12-28 | Outpatient (CLI) | payer MEDICARE, MEDICAID | LOC: M CLY 15:10 | PROVIDERS: ATTEND Family Medicine | DX: M17.12 Unilateral primary osteoarthritis, left knee (principal); M25.562 Pain in left knee; D64.9 Anemia, unspecified; I10 Essential (primary) hypertension; E87.1 Hypo-osmolality and hyponatremia; E03.9 Hypothyroidism, unspecified ==